=== PATIENT | male | born 1990 | race Caucasian/White ===

== ENCOUNTER 2020-08-28 11:27 | Outpatient (REF) | payer MEDICAID, SELFPAY | END 2020-08-28 11:28 | disposition home or self-care (01) | LOC: HO.LAB 11:27 | PROVIDERS: PCP Internal Medicine; Referring Provider Internal Medicine; Visit Provider Surgery | DX: L02.91 Cutaneous abscess, unspecified (principal) | CPT/HCPCS: 10060; 87071; 87205; 99213 ==

== ENCOUNTER → 2020-09-18 13:52 | Outpatient (BNVA) | payer MEDICAID, SELFPAY | PROVIDERS: PCP Internal Medicine; Visit Provider Surgery | DX: Z09 Encounter for follow-up examination after completed treatment for conditions other than malignant neoplasm (principal); Z87.2 Personal history of diseases of the skin and subcutaneous tissue | CPT/HCPCS: 99212 ==

== ENCOUNTER 2021-06-16 18:49 | Outpatient (REF) | payer MEDICAID, SELFPAY ==
--- NOTE | ~2021-06-16 | MR_ITS ---
EXAMINATION: MR BRAIN WITHOUT CONTRAST CLINICAL INFORMATION: Syncope COMPARISON: None. TECHNIQUE: MRI of the brain was obtained using routine sequences without contrast. FINDINGS: No areas of abnormally restricted diffusion within the brain parenchyma to suggest acute or subacute ischemia. There are a few scattered foci of subcortical white matter T2 prolongation statistically related to microangiopathic gliosis. No transcortical infarcts. No pathological magnetic susceptibility artifact is demonstrated. There is no intracranial mass, mass effect, or shift of midline structures. No abnormal extra axial fluid collection. Ventricular system normal in size proportionate to the subarachnoid spaces, without evidence of hydrocephalus. Mild generalized brain parenchymal volume loss. Posterior fossa structures are normal. The craniocervical junction is normal. Midline structures including the posterior pituitary bright spot are normal. The intracranial vascular flow voids including the major dural venous sinuses are preserved. Mastoid air cells are clear. The visualized paranasal sinuses are well-aerated. Globes and orbits unremarkable. MR/MR head/brain wo con IMPRESSION: Normal MRI of the brain.
== END 2021-06-16 18:50 | disposition home or self-care (01) ==
LOC: HO.MRI 18:49
PROVIDERS: Visit Provider Family Medicine
DX: R55 Syncope and collapse (principal)
CPT/HCPCS: 70551

== ENCOUNTER → 2021-06-25 12:35 | Outpatient (REF) | payer MEDICAID, SELFPAY ==
--- NOTE | 2021-06-25 12:38 | ECG_ITS ---
Hook-up date: 2021-06-25 12:51:00 Duration: 47:59:00 Test Indications: SYNCOPE AND COLLAPSE Medications: [id number] QRS complexes * Ventricular ectopics which represent % of total QRS comp. 12 Supraventricular ectopics which represent <1 % of total QRS comp. * Paced QRS complexs which represent % of total QRS comp. VENTRICULAR ECTOPY * Isolated * Bigeminal Cycles * Couplets * Runs * Beats in Runs * Beats LONGEST at * BPM at :: -- * Beats FASTEST at * BPM at :: -- SUPRAVENTRICULAR ECTOPY 12 Isolated 0 Couplets 0 Runs 0 Beats in Runs * Beats LONGEST at * BPM at :: -- * Beats FASTEST at * BPM at :: -- HEART RATES 45 MIN at 08:53:28 2021-06-26 73 AVG 128 MAX at 10:49:25 2021-06-26 LONGEST RR 1.4320 secs at 09:12:57 2021-06-26 S-T LEVELS Channel 1 - 128 mm at 12:51:00 2021-06-25 - 128 mm at 12:51:00 2021-06-25 Channel 2 - 128 mm at 12:51:00 2021-06-25 - 128 mm at 12:51:00 2021-06-25 Channel 3 - 128 mm at 03:21:01 -- - 128 mm at 03:21:01 Basic rhythm Normal sinus rhythm No long pause or profound bradycardia Rare Premature atrial complexes Patient did not report any symptoms in the diary Referred By: Tosin Jack Overread By: KAREEN CROSS MD
== END ==
LOC: HO.CARD 12:35
PROVIDERS: Visit Provider Family Medicine
DX: R55 Syncope and collapse (principal)
CPT/HCPCS: 93225; 93226

== ENCOUNTER 2023-08-10 11:00 | Outpatient (REF) | payer MEDICAID, SELFPAY ==
[2023-08-10 14:58] LABS: Alanine Aminotransferase 8 U/L (0-40); Albumin Level 4.4 g/dL (3.5-5.0); Alkaline Phosphatase 74 U/L (39-117); Anion Gap 13 (12-20); Aspartate Amino Transferase 18 U/L (5-37); Bilirubin Direct < 0.2 mg/dL (0.0-0.5); Bilirubin Total 0.2 mg/dL (0.0-1.0); Blood Urea Nitrogen 5 mg/dL (9-16); Calcium 9.7 mg/dL (8.4-10.2); Carbon Dioxide 28 mmol/L (22-29); Chloride 101 mmol/L (96-108); Cholesterol 250 mg/dL (<200); Estimated Glomerular Filt Rate > 60; Glucose Fasting 84 mg/dL (60-99); HDL Cholesterol 31 mg/dL (>40); Potassium 3.7 mmol/L (3.3-5.1); Sodium 138 mmol/L (135-145); Total Protein 7.2 g/dL (6.5-8.0); Triglycerides 405 mg/dL (<150)
[2023-08-10 15:14] LABS: Vitamin D 25-OH Total 18.8 ng/mL (>30)
[2023-08-10 15:29] LABS: Vitamin B12 910 pg/mL (200-900)
[2023-08-11 09:37] LABS: ~HepC Num1 0.04 S/CO (0.00-0.79); ~Hepatitis C Antibody Nonreactive (Nonreactive)
== END 2023-08-10 11:01 | disposition home or self-care (01) ==
LOC: HO.CHCLDS 11:00
PROVIDERS: Visit Provider Internal Medicine
DX: E78.2 Mixed hyperlipidemia (principal); E55.9 Vitamin D deficiency, unspecified; E53.8 Deficiency of other specified B group vitamins
CPT/HCPCS: 36415; 80053; 80061; 80076; 82248; 82306; 82607; 82746; 86803

== ENCOUNTER 2024-04-04 09:20 | Outpatient (REF) | payer MEDICAID, SELFPAY ==
[2024-04-04 14:42] LABS: MANUAL DIFF FLAG NO
[2024-04-04 15:03] LABS: Basophils Percent Auto 0.5 % (0-2); Eosinophils Absolute Auto 0.3 X10*3/uL (0.0-0.4); Eosinophils Percent Auto 3.9 % (0-4); Hematocrit 42.4 % (42.0-52.0); Hemoglobin 14.1 g/dl (14.0-18.0); Imm Gran Abs Auto 0.02 X10*3/uL (0.00-0.03); Imm Gran Pct Auto 0.3 % (0.0-0.4); Lymphocytes Absolute Auto 2.3 X10*3/uL (1.2-4.9); Lymphocytes Percent Auto 30.3 % (20-40); Mean Corpuscular HGB Conc 33.3 g/dl (31.0-36.0); Mean Corpuscular Hemoglobin 29.5 pg (27.0-33.0); Mean Corpuscular Volume 88.7 fL (80.0-98.0); Mean Platelet Volume 10.2 fL (9.4-12.4); Monocytes Absolute Auto 0.6 X10*3/uL (0.1-1.2); Monocytes Percent Auto 8.1 % (2-11); Neutrophils Absolute Auto 4.4 x10*3/uL (2.0-8.3); Neutrophils Percent Auto 56.9 % (45-73); Platelet Count 262 X10*3/uL (160-400); Red Blood Count 4.78 X10*6/uL (4.60-5.80); Red Cell Distribution Width 14.4 % (11.0-16.0); White Blood Count 7.7 X10*3/uL (4.8-10.8)
[2024-04-04 15:11] LABS: Estimated Average Glucose 105 mg/dL; Hemoglobin A1c % 5.3 % (<6.0)
[2024-04-04 15:23] LABS: Alanine Aminotransferase 16 U/L (0-40); Albumin Level 4.5 g/dL (3.5-5.0); Alkaline Phosphatase 85 U/L (39-117); Anion Gap 12 (12-20); Aspartate Amino Transferase 18 U/L (5-37); Bilirubin Total 0.7 mg/dL (0.0-1.0); Blood Urea Nitrogen 4 mg/dL (9-16); Calcium 9.2 mg/dL (8.4-10.2); Carbon Dioxide 28 mmol/L (22-29); Chloride 103 mmol/L (96-108); Cholesterol 78 mg/dL (<200); Estimated Glomerular Filt Rate > 60; Glucose Random 83 mg/dL (60-115); HDL Cholesterol 35 mg/dL (>40); Iron 103 mcg/dL (45-160); LDL Cholesterol Calculated 19 mg/dL (<100); Percent Iron Saturation 44 % (15-50); Potassium 3.2 mmol/L (3.3-5.1); Sodium 140 mmol/L (135-145); Total Iron Binding Capacity 232 mcg/dL (228-428); Total Protein 7.1 g/dL (6.5-8.0); Triglycerides 122 mg/dL (<150); Unsaturated Iron Binding 129 ug/dL
[2024-04-04 15:40] LABS: TSH reflex Free T4 1.18 uIU/mL (0.32-4.0); Vitamin D 25-OH Total 36.2 ng/mL (>30)
[2024-04-04 15:53] LABS: Folate 2.4 ng/mL (> or = 4.0); Vitamin B12 291 pg/mL (200-900)
== END 2024-04-04 09:21 | disposition home or self-care (01) ==
LOC: HO.CHCLDS 09:20
PROVIDERS: Visit Provider Internal Medicine
DX: R53.83 Other fatigue (principal)
CPT/HCPCS: 36415; 80053; 80061; 82306; 82607; 82746; 83036; 83540; 84443; 85025

== ENCOUNTER 2024-12-20 10:53 | Outpatient (REF) | payer MEDICAID, SELFPAY ==
--- OUTSIDE RECORDS SUMMARY | 2024-12-20 12:42 | XMS_ITS | Encounter Summary ---
Author Organization [employer] Address [address] [facility] 7 [place] [address] Care Team Providers Care Hose Wrapper Name Role Phone Lynn Colon MD Primary Care Provider [phone] Encounter Details Date Type Department Care Team ([facility] [address] Contact Info) Description 12/20/2024 10:00 AM EST Office Visit [facility] [address] [place], [place] [id number] Lynn Colon MD [address] [place] [address] Other fatigue (Primary Dx); History of weight loss; Vitamin D deficiency; Vitamin B12 deficiency; Mood disorder (CMS/HCC) Social History Tobacco Use Types Packs/Day Years Used Date Smoking Tobacco: Every Day Cigarettes Passive Smoke Exposure: Never Smokeless Tobacco: Never Alcohol Use Standard Drinks/Week Comments Not Currently 60 (1 standard drink = 0.6 oz pu re alcohol) Depression Answer Date Recorded Patient Health Questionnaire-9 Score 3 03/27/2024 Patient Health Questionnaire-9 Score 3 03/27/2024 Last PHQ-9: Questionnaire Data Not on file 0 03/27/2024 Housing Stability Answer Date Recorded What is your housing situation today? I have ida boothe 03/27/[address] you li ve. Do you have problems with any of the following? None of the above 03/27/2024 Food Insecurity Answer Date Recorded Within the past 12 months, y ou worried that your food would run out before you got money to buy more: Never True 03/27/2024 Within the past 12 months,th e food you bought just didn't last and you didn't have enough money to get more: Never True Transportation Answer Date Recorded In the past 12 months, has l ack of transportation kept you from medical appts, meetings, work or from getting things needed for daily living? No 03/27/2024 Utilities Answer Date Recorded In the past 12 months, has t he electric, gas, oil or water company threatened to shut off services in your home? No 03/27/2024 Depression Answer Date Recorded Patient Health Questionnaire-2 Score 2 03/27/2024 Sex and Gender Information Value Date Recorded Sex Assigned at Male 09/07/2022 10:29 AM EDT Legal Sex Male 10:29 AM EDT Gender Identity Male 09/07/2022 10:29 AM EDT Sexual Orientation Straight 09/07/2022 10 :29 AM EDT documented as of this encounter Last Filed Vital Signs Vital Sign Reading Time Taken Comments Blood Pressure 100/60 12/20/2024 10:23 AM EST Pulse 82 12/20/2024 10:23 AM EST Temperature 36.1 ??C (97 ??F) 12/20/2024 10:23 AM EST Respiratory Rate 20 12/20/2024 10:23 AM EST Oxygen Saturation - - Inhaled Oxygen Concentration - - Weight 55.8 kg (123 lb) 12/20/2024 10:23 AM EST Height 175.3 cm (5' 9 ) 12/20/2024 10:23 AM EST Body Mass Index 18.16 12/20/2024 10:23 AM EST documented in this encounter Progress Notes * Lynn Colon MD - 12/20/2024 10:00 AM EST Subjective Patient ID: Edmar Huntley is a 34 y.o. male who presents for fatigue and poor appetite. Edmar is a 34 y/o male patient of Dr. Patricio with bipolar disorder,ADHD and problems of learning disability since childhood here with mom because his appetite is very poor ( always has been ) but seems to be worse lately.Has an itchy rash affecting back,torso and upper extremities. He smokes marijuana from dispensary.3 cigarettes per day and he isnt drinking alcohol anymore since over 5 years ago. He had labs done in March of last year which were pretty benign and were reviewed by myself. His weight is stable from last visit. Per mom he can go days without eating much unless she is on top of him. Patient is getting a lot of dental work done at [facility] dental clinic but denies having dental pain orchewing difficulties. He does get epigastric pain on occasions with no radiation but denies blood in stool, hematuria, polyuria, back pain, diarrhea, constipation, etc. He has a psychiatrist as well as a therapist that he has been seeing for years. He is not on any new medications. Review of Systems Constitutional: Negative for activity change, chills, fever and unexpected weight change. Respiratory: Negative for cough, shortness of breath and wheezing. Cardiovascular: Negative for chest pain, palpitations and leg swelling. Gastrointestinal: Negative for abdominal pain and blood in stool. Endocrine: Negative for polydipsia and polyuria. Genitourinary: Negative for decreased urine volume, difficulty urinating, dysuria and hematuria. Musculoskeletal: Negative for arthralgias and gait problem. Skin: Negative for color change and rash. Neurological: Negative for dizziness and headaches. Hematological: Negative for adenopathy. Psychiatric/Behavioral: Negative for dysphoric mood, hallucinations, sleep disturbance and suicidalideas. The patient is not nervous/anxious. Objective BP 100/60 (BP Location: Left arm, Patient Position: Sitting, BP Cuff Size: Adult) Pulse82 Temp 97 ??F (36.1 ??C) (Oral) Resp 20 Ht 5' 9 (1.753 m) Wt 123 lb (55.8 kg) BMI 18.16kg/m?? Physical Exam Constitutional: General: He is not in acute distress. Appearance: He is underweight. HENT: Head: Normocephalic. Nose: Nose normal. Mouth/Throat: Mouth: Mucous membranes are dry. Eyes: Extraocular Movements: Extraocular movements intact. Pupils: Pupils are equal, round, and reactive to light. Cardiovascular: Rate and Rhythm: Normal rate and regular rhythm. Heart sounds: Normal heart sounds. No murmur heard. Pulmonary: Effort: Pulmonary effort is normal. Breath sounds: Normal breath sounds. No wheezing. Abdominal: General: Abdomen is flat. There is no distension. Palpations: Abdomen is soft. There is no hepatomegaly, splenomegaly, mass or pulsatile mass. Tenderness: There is abdominal tenderness in the epigastric area. There is no guarding. Musculoskeletal: Cervical back: Normal range of motion. Right lower leg: No edema. Left lower leg: No edema. Lymphadenopathy: Cervical: No cervical adenopathy. Neurological: Mental Status: He is alert. Psychiatric: Behavior: Behavior is cooperative. Assessment/Plan Diagnoses and all orders for this visit: Other fatigue - POCT Glucose - POCT Hemoglobin - Lipid Panel, Standard; Future - Basic Metabolic Panel, Fasting; Future - BROOKE Screen,IFA, with Reflex to Titer and Pattern; Future - CBC auto differential; Future - Chlamydia/N. Gonorrhoeae RNA, TMA, Urogenitial - Hemoglobin A1c; Future - Hepatic Function Panel; Future - Vitamin D, 25-Hydroxy, Total, Immunoassay; Future - Vitamin B12/Folate, Serum Panel; Future - TSH W/Reflex to FT4; Future - Urinalysis with reflex microscopic; Future - Syphilis Screen; Future - HIV-1/2 Antigen and Antibodies, Fourth Generation, with Reflexes; Future - Hepatitis C Antibody with Reflex to HCV, RNA, Quantitative, Real-Time PCR; Future History of weight loss Comments: Weight has been stable since last visit but he is underweight. This could be from side effects of his psychiatric medications versus other etiologies. BMI is 18. Check fasting labs today follow-up with me given for results. Orders: - Lipid Panel, Standard; Future - Basic Metabolic Panel, Fasting; Future - BROOKE Screen,IFA, with Reflex to Titer and Pattern; Future - CBC auto differential; Future - Chlamydia/N. Gonorrhoeae RNA, TMA, Urogenitial - Hemoglobin A1c; Future - Hepatic Function Panel; Future - Vitamin D, 25-Hydroxy, Total, Immunoassay; Future - Vitamin B12/Folate, Serum Panel; Future - TSH W/Reflex to FT4; Future - Urinalysis with reflex microscopic; Future - Syphilis Screen; Future - HIV-1/2 Antigen and Antibodies, Fourth Generation, with Reflexes; Future - Hepatitis C Antibody with Reflex to HCV, RNA, Quantitative, Real-Time PCR; Future - Lipase; Future Vitamin D deficiency Comments: Patient is barely eating at all. Check levels and treat accordingly. Vitamin B12 deficiency Comments: Last blood work from March 2024 revealed a level below 300. Recheck levels today and treat accordingly. Patient is not drinking alcohol since the past 5 years. Mood disorder (CMS/HCC) Comments: Unsure of his psychiatric diagnosis. Seems to be treated for bipolar disorder. Does have therapist and psychiatrist. Follow-up as planned. documented in this encounter Plan of Treatment Upcoming Encounters Date Type Department Care Team (Late st Contact Info) Description 01/05/2025 1:00 PM EST Office Visit [facility] [address] [place] [address] Valerie Go 01/18/2025 10:15 AM EDT Office Visit [facility] [address] [place] [address] Lynn Colon MD [address] [place] [address] Scheduled Orders Name Type Priority Associated Diagnoses Orde r Schedule Lipid Panel, Standard Lab Routine Other fatigue History of weight loss Expected: 12/20/2024 (Approximate), Expires: 12/20/2025 Basic Metabolic Panel, Fasting Lab Routine Other fatigue History of weight loss Expected: 12/20/2024 (Approximate), Expires: 12/20/2025 BROOKE Screen,IFA, with Reflex to Titer and Pattern Lab Routine Other fatigue History of weight loss Expected: 12/20/2024 (Approximate), Expires: 12/20/2025 CBC auto differential Lab Routine Other fatigue History of weight loss Expected: 12/20/2024 (Approximate), Expires: 12/20/2025 Chlamydia/N. Gonorrhoeae RNA, TMA, Urogenitial Microbiology Routine Other fatigue History of weight loss Ordered: 12/20/2024 Hemoglobin A1c Lab Routine Other fatigue History of weight loss Expected: 12/20/2024 (Approximate), Expires: 12/20/2025 Hepatic Function Panel Lab Routine Other fatigue History of weight loss Expected: 12/20/2024 (Approximate), Expires: 12/20/2025 Vitamin D, 25-Hydroxy, Total, Immunoassay Lab Routine Other fatigue History of weight loss Expected: 12/20/2024 (Approximate), Expires: 12/20/2025 Vitamin B12/Folate, Serum Panel Lab Routine Other fatigue History of weight loss Expected: 12/20/2024, Expires: 12/20/2025 TSH W/Reflex to FT4 Lab Routine Other fatigue History of weight loss Expected: 12/20/2024 (Approximate), Expires: 12/20/2025 Urinalysis with reflex microscopic Lab Routine Other fatigue History of weight loss Expected: 12/20/2024, Expires: 12/20/2025 Syphilis Screen Lab Routine Other fatigue History of weight loss Expected: 12/20/2024, Expires: 12/20/2025 HIV-1/2 Antigen and Antibodies, Fourth Generation, with Reflexes Lab Routine Other fatigue History of weight loss Expected: 12/20/2024 (Approximate), Expires: 12/20/2025 Hepatitis C Antibody with Reflex to HCV, RNA, Quantitative, Real-Time PCR Lab Routine Other fatigue History of weight loss Expected: 12/20/2024, Expires: 12/20/2025 Lipase Lab Routine History of weight loss Expected: 12/20/2024, Expires: 12/20/2025 documented as of this encounter Procedures Procedure Name Priority Date/Time Associated Diagnosis Comments POCT HEMOGLOBIN Routine 12/20/2024 11:06 AM EST Other fatigue POCT GLUCOSE Routine 12/20/2024 11:04 AM EST Other fatigue documented in this encounter Results * POCT Hemoglobin (12/20/2024 11:06 AM EST) Hemoglobin 14.8 13.0 - 17.0 QC Media Lot # [id number] Lot# Expiration Date 132,026 Blood 12/20/2024 11:0 6 AM EST us Lynn Colon MD POINT OF CARE TEST ENTER/EDIT ORDERABLES Final Result * POCT Glucose (12/20/2024 11:04 AM EST) Glucose Blood, POC 118 60 - 200 mg/dL Comment:fasting QC Media Lot # [id number] Lot# Expiration Date 4,825 Blood Capillary blood specimen / Unknown 12/20/2024 11:04 AM EST us Lynn Colon MD POINT OF CARE TEST ENTER/EDIT ORDERABLES Final Result documented in this encounter Visit Diagnoses Diagnosis Other fatigue- Primary History of weight loss Vitamin D deficiency Vitamin B12 deficiency Other B-complex deficiencies Mood disorder (CMS/HCC) Unspecified episodic mood disorder documented in this encounter Additional Health Concerns Assessment Noted Time PHQ-9 Depression Total Score: 3 03/27/20 24 1:07 PM EDT documented as of this encounter Care Teams Hose Wrapper Relationship Specialty Start Date End Date Lynn Colon MD [address] [place] [id number] PCP - General Internal Medicine 12/20/24 Lucie Blankenship Renal Social WorkerOrnamental Plasterer Helper 02/02/24 documented as of this encounter
--- OUTSIDE RECORDS SUMMARY | 2024-12-20 12:42 | XMS_ITS | Encounter Summary ---
Author Organization [employer] Address [address] [place] [address] Care Team Providers Care Holistic Health Practitioner Name Role Phone Reed Cortes MD Primary Care Prov ider Lynn Colon MD Primary Care Provider [phone] Encounter Details Date Type Department Care Team (Late st Contact Info) Description 11/02/2023 Abstract [facility] [address] [place] [address] Sahil Conrad, DDS [address] [place] [address] Social History Tobacco Use Types Packs/Day Years Used Date Smoking Tobacco: Every Day Cigarettes Passive Smoke Exposure: Never Smokeless Tobacco: Never Alcohol Use Standard Drinks/Week Comments Not Currently 60 (1 standard drink = 0.6 oz pu re alcohol) Depression Answer Date Recorded Patient Health Questionnaire-9 Score 9 01/27/2023 Housing Stability Answer Date Recorded What is your housing situation today? I have ida boothe 08/23/[address] you li ve. Do you have problems with any of the following? None of the above 08/23/2023 Food Insecurity Answer Date Recorded Within the past 12 months, y ou worried that your food would run out before you got money to buy more: Never True 08/23/2023 Within the past 12 months,th e food you bought just didn't last and you didn't have enough money to get more: Never True Transportation Answer Date Recorded In the past 12 months, has l ack of transportation kept you from medical appts, meetings, work or from getting things needed for daily living? No 08/23/2023 Utilities Answer Date Recorded In the past 12 months, has t he electric, gas, oil or water company threatened to shut off services in your home? No 08/23/2023 Depression Answer Date Recorded Patient Health Questionnaire-2 Score 2 01/27/2023 Sex and Gender Information Value Date Recorded Sex Assigned at Male 09/07/2022 10:29 AM EDT Legal Sex Male 10:29 AM EDT Gender Identity Male 09/07/2022 10:29 AM EDT Sexual Orientation Straight 09/07/2022 10 :29 AM EDT documented as of this encounter Plan of Treatment Upcoming Encounters Date Type Department Care Team (Late st Contact Info) Description 01/05/2025 1:00 PM EST Office Visit [facility] [address] [place] [address] Valerie Go 01/18/2025 10:15 AM EDT Office Visit [facility] [address] [place] [address] Lynn Colon MD [address] [place] [address] documented as of this encounter Visit Diagnoses Not on filedocumented in this encounter Additional Health Concerns Assessment Noted Time PHQ-9 Depression Total Score: 9 01/28/20 23 11:27 AM EDT documented as of this encounter Care Teams Holistic Health Practitioner Relationship Specialty Start Date End Date Reed Cortes MD [address] [place] [address] PCP - General Internal Medicine 03/12/20 12/19/24 Lynn Colon MD [address] [place] [address] PCP - General Internal Medicine 12/20/24 Lucie Blankenship Cruise Staff MemberColorist Dyer 02/02/24 documented as of this encounter
--- OUTSIDE RECORDS SUMMARY | 2024-12-20 12:42 | XMS_ITS | Encounter Summary ---
Author Organization [employer] Address [address] [facility] [address]t [place] [address] Care Team Providers Care Intranet Specialist Name Role Phone Reed Cortes MD Primary Care Prov ider Lynn Colon MD Primary Care Provider [phone] Reason for Visit * Reason Comments Med Refill Encounter Details Date Type Department Care Team ([facility] st Contact Info) Description 03/29/2023 Refill [facility] [address] [place], [place] [phone] Tosin Jack MD [address] [place] [address] Vitamin deficiency Social History Tobacco Use Types Packs/Day Years Used Date Smoking Tobacco: Every Day Cigarettes Passive Smoke Exposure: Never Smokeless Tobacco: Never Alcohol Use Standard Drinks/Week Comments Not Currently 60 (1 standard drink = 0.6 oz pu re alcohol) Depression Answer Date Recorded Patient Health Questionnaire-9 Score 9 01/27/2023 Depression Answer Date Recorded Patient Health Questionnaire-2 Score 2 01/27/2023 Sex and Gender Information Value Date Recorded Sex Assigned at Male 09/07/2022 10:29 AM EDT Legal Sex Male 10:29 AM EDT Gender Identity Male 09/07/2022 10:29 AM EDT Sexual Orientation Straight 09/07/2022 10 :29 AM EDT documented as of this encounter Miscellaneous Notes * Telephone Encounter - Tosin Jack MD - 03/29/2023 9:14 AM EDT This is a not a ad terminal makeup operator medication this is for short term, at this moment will refused this request documented in this encounter Plan of Treatment Upcoming Encounters Date Type Department Care Team (Late st Contact Info) Description 01/05/2025 1:00 PM EST Office Visit [facility] [address] [place] [address] Valerie Go 01/18/2025 10:15 AM EDT Office Visit [facility] [address] [place] [address] Lynn Colon MD [address] [place] [address] documented as of this encounter Visit Diagnoses Diagnosis Vitamin deficiency Unspecified vitamin deficiency documented in this encounter Additional Health Concerns Assessment Noted Time PHQ-9 Depression Total Score: 9 01/28/20 23 11:27 AM EDT documented as of this encounter Care Teams Intranet Specialist Relationship Specialty Start Date End Date Reed Cortes MD [address] [place] [address] PCP - General Internal Medicine 03/12/20 12/19/24 Lynn Colon MD [address] [place] [address] PCP - General Internal Medicine 12/20/24 Lucie Blankenship Caster OperatorCore Drilling Supervisor 02/02/24 documented as of this encounter
--- OUTSIDE RECORDS SUMMARY | 2024-12-20 12:42 | XMS_ITS | Encounter Summary ---
Author Organization [employer] [facility] Address [address] [place] [address] 7 [place] [address] Care Team Providers Care Cooler Man Name Role Phone Reed Cortes MD Primary Care Prov ider Lynn Colon MD Primary Care Provider [phone] Encounter Details Date Type Department Care Team (Latest Contact Info) Description 06/12/2021 Abstract [facility] Dental, Provider, DDS Social History Tobacco Use Types Packs/Day Years Used Date Smoking Tobacco: Never Assessed Sex and Gender Information Value Date Recorded Sex Assigned at Male 09/07/2022 10:29 AM EDT Legal Sex Male 10:29 AM EDT Gender Identity Male 09/07/2022 10:29 AM EDT Sexual Orientation Straight 09/07/2022 10 :29 AM EDT documented as of this encounter Plan of Treatment Upcoming Encounters Date Type Department Care Team (Late st Contact Info) Description 01/05/2025 1:00 PM EST Office Visit [facility] [address] [place] [address] Valerie Go 01/18/2025 10:15 AM EDT Office Visit [facility] [address] [place] [address] Lynn Colon MD [address] [place] [address] documented as of this encounter Visit Diagnoses Not on filedocumented in this encounter Care Teams Cooler Man Relationship Specialty Start Date End Date Reed Cortes MD [address] [place] [address] PCP - General Internal Medicine 03/12/20 12/19/24 Lynn Colon MD [address] [place] [address] [place] [address] PCP - General Internal Medicine 12/20/24 Lucie Blankenship Sheep ClipperCarton Marker Machine 02/02/24 documented as of this encounter
--- OUTSIDE RECORDS SUMMARY | 2024-12-20 12:42 | XMS_ITS | Encounter Summary ---
Author Organization [employer] Address [address] [place] [address] Care Team Providers Care Patternmaker Hand Name Role Phone Lynn Colon MD Primary Care Provider [phone] Encounter Details Date Type Department Care Team (Latest Contact Info) Description 12/20/2024 Travel Social History Tobacco Use Types Packs/Day Years [...] 1:00 PM EST Office Visit [facility] [address] [place] [address] Valerie Go 01/18/2025 10:15 AM EDT Office Visit [facility] [address] [place] [address] Lynn Colon MD [address] [place] [address] documented as of this encounter Visit Diagnoses Not on filedocumented in this encounter Additional Health Concerns Assessment Noted Time PHQ-9 Depression Total Score: 3 03/27/20 24 1:07 PM EDT documented as of this encounter Care Teams Patternmaker Hand Relationship Specialty Start Date End Date Lynn Colon MD [address] [place] [address] PCP - General Internal Medicine 12/20/24 Lucie Blankenship Wallpaper HangerSpecial Needs Tutor 02/02/24 documented as of this encounter
--- OUTSIDE RECORDS SUMMARY | 2024-12-20 12:42 | XMS_ITS | Encounter Summary ---
Author Organization [employer] Address [address] [facility] 7t [place] [address] Care Team Providers Care Alteration Inspector Name Role Phone Reed Cortes MD Primary Care Prov ider Lynn Colon MD Primary Care Provider [phone] Reason for Visit * Reason Onset Date Comments call back 12/30/2022 Encounter Details Date Type Department Care Team ([facility] st Contact Info) Description 12/30/[address] [facility] MEDICINE [address] [place] [address] Reed Cortes MD [address] [place] [address] call back Social History Tobacco Use Types Packs/Day Years Used Date Smoking Tobacco: Never Passive Smoke Exposure: Past Smokeless Tobacco: Never Alcohol Use Standard Drinks/Week Comments Never 0 (1 standard drink = 0.6 oz pur e alcohol) Sex and Gender Information Value Date Recorded Sex Assigned at Male 09/07/2022 10:29 AM EDT Legal Sex Male 10:29 AM EDT Gender Identity Male 09/07/2022 10:29 AM EDT Sexual Orientation Straight 09/07/2022 10 :29 AM EDT COVID-19 Exposure Response Date Recorded In the last 10 days, have yo u been in contact with someone who was confirmed or suspected to have Coronavirus/COVID-19? No / Unsure 12/18/2022 10:15 AM EST documented as of this encounter Miscellaneous Notes * Telephone Encounter - Jcarlos Gaspar - 12/30/2022 10:53 AM EST Tc from mom returning call. Mom requesting a call back documented in this encounter Plan of Treatment Upcoming Encounters Date Type Department Care Team ([facility] st Contact Info) Description 01/05/2025 1:00 PM EST Office Visit [facility] ADULT DENTAL [address] [place] [address] Valerie Go 01/18/2025 10:15 AM EDT Office Visit [facility] MED & PEDS [address] [place] [address] Lynn Colon MD [address] [place] [address] documented as of this encounter Visit Diagnoses Not on filedocumented in this encounter Care Teams Alteration Inspector Relationship Specialty Start Date End Date Reed Cortes MD [address] [place] [address] PCP - General Internal Medicine 03/12/20 12/19/24 Lynn Colon MD [address] [place] [address] PCP - General Internal Medicine 12/20/24 Lucie Blankenship Coater Operator Insulation BoardPortfolio Mgr 02/02/24 documented as of this encounter
--- OUTSIDE RECORDS SUMMARY | 2024-12-20 12:42 | XMS_ITS | Clinical Summary ---
Author Organization [employer] Address [address] [facility] 7t [place] [address] Care Team Providers Care Resident Care Aid Name Role Phone Lynn Colon MD Primary Care Provider [phone] Allergies Active Allergy Reactions Criticality Noted Date Comments Sertraline High 01/23/2019 Other reaction(s): Drowsy, Fatigue Medications traZODone (Desyrel) 100 MG tablet Take 200 mg by mouth at bedtime. 3 Active Invega 9 MG 24 hr tablet Take 9 mg by mouth at bedtime. 2 Active nicotine (Nicoderm, Step 2) 14 MG/24HR patch Place 1 patch on the skin at bed time. 2 Active buPROPion (Wellbutrin) 100 MG tablet Take 100 mg by mouth in the morning. 3 Active busPIRone (Buspar) 10 MG tablet Take 1 tablet by mouth every 12 (twelve) hours. Active citalopram (CeleXA) 20 MG tablet Take 40 mg by mouth Once per day. 3 Active clonazePAM (KlonoPIN) 1 MG tablet Take 1 mg by mouth if needed each day. 3 Active hydrOXYzine HCl (Atarax) 25 MG tablet Take 25 mg by mouth if needed in the morning, at noon, and at bedtime. 3 Active melatonin 3 MG tablet TAKE 1-2 TABLETS BY MOUTH AT BEDTIME NEEDED 3 Active multivitamin (Theragran) tablet Take 1 tablet by mouth in the morning. 2 Active naltrexone (Depade) 50 MG tablet Take 1 tablet by mouth at bed time. Active Cyanocobalamin (Vitamin B-12 ER) 2000 MCG tablet controlled-rele aseIndications: Vitamin deficiency Take 1 tablet by mouth in the morning. 90 tablet 1 3 Active folic acid (Folvite) 1 MG tabletIndicatio ns:Vitamin deficiency Take 1 tablet (1 mg) by mouth in the morning. 90 tablet 1 3 Active atorvastatin (Lipitor) 20 MG tablet TAKE 1 TABLET(20 MG) BY MOUTH IN THE MORNING 90 tablet 1 4 Active citalopram (CeleXA) 40 MG tablet Take 1 tablet by mouth Once per day. 4 Active cholecalciferol (Vitamin D-3) 25 MCG (1000 UT) capsule Take 1 capsule (25 mcg) by mouth in the morning. 90 capsule 3 4 11/24/19 25 Additional Information Patient not taking.Reported on 07/18/2024 Active Problems Problem Noted Date Diagnosed Date Chronic left-sided low back pain without sciatic a 2023 Assessment & Plan (2023 2:29 PM EST): Told to rest, apply ice, may take tylenol/ibuprofen, lumbar xray ordered Vitamin D deficiency 04/28/2023 Assessment & Plan (03/27/2024 2:31 PM EDT): On oral replacement, will order labs for evaluation Assessment & Plan (2023 2:21 PM EST): Will start vitamin d replacement Assessment & Plan (04/28/2023 11:10 AM EDT): Will order vitamin d levels for guidance of therapy Vitamin B12 deficiency 04/28/2023 Assessment & Plan (04/28/2023 11:15 AM EDT): On cyanocobalamin, will order labs for guidance of therapy Annual physical exam 01/27/2023 Assessment & Plan (01/27/2023 6:12 PM EDT): Unremarkable physical examination, reinforced importance of diet and exercise Mixed hyperlipidemia 01/27/2023 Assessment & Plan (03/27/2024 2:31 PM EDT): Refers taking atorvastatin daily, will order new labs for guidance Assessment & Plan (2023 2:29 PM EST): Patient and family member confirm he is taking atorvastatin daily, reinforced lifestyle changes, avoid fried/fast food, increase fish in diet, will order new lab for guidance Assessment & Plan (07/28/2023 8:30 PM EDT): Patient refers taking medication but on review it was picked up last time on 01/2023, new labs ordered not performed, he refers will get them done this week, will call with results Assessment & Plan (04/28/2023 11:14 AM EDT): On atorvastatin, will order new labs for guidance of therapy, reinforced importance of diet and exercise as tolerated Assessment & Plan (01/27/2023 6:13 PM EDT): Cholesterol/LDL >190, will start on atorvastatin 20mg, risk vs benefits discussed Other fatigue 12/18/2022 Assessment & Plan (03/27/2024 2:30 PM EDT): Patient complains of fatigue and dizziness, will order blood test to evaluate other causes, could also be related to psych medications Assessment & Plan (12/22/2022 3:34 PM EST): Unclear etiology, will send labs to assess if there is an organic cause to his symptoms, of note he is on various medications that can precipitate his symptoms. Likely multifactorial. Alcohol abuse 02/27/2019 Mood disorder 02/27/2019 Assessment & Plan (01/27/2023 6:12 PM EDT): Followed by psych, no active suicidal/homicidal ideas Encounters Date Type Department Care Team Description 12/20/2024 10:00 AM EST Office Visit [facility] MED & PEDS [address] [place] [address] Lynn Colon MD Other fatigue (Primary Dx); History of weight loss; Vitamin D deficiency; Vitamin B12 deficiency; Mood disorder (CMS/HCC) 12/20/2024 Telephone [facility] MED & PEDS [address] [place] [address] Lynn Colon MD Change PCP 12/20/2024 Travel 12/19/2024 Telephone [facility] MED & PEDS [address] [place] [address] Reed Cortes MD 12/12/2024 Telephone [facility] MED & PEDS [address] [place] [address] Reed Cortes MD Nurse Triage from Last 3 Months Immunizations Name Administration Dates Next Due Hep A, Adult 09/25/2019,03/24/2019 Influenza Injectable Quadriv alant Preservative Free IIV4 MDCK 09/02/2020 Influenza injectable quadriv alent IIV4 with preservative 09/25/2019,09/06/2018 Influenza injectable quadrivalent preservative f ree 12/08/2017,01/17/2016 Influenza, IIV3, injectable 08/22/2014, 0 Moderna Covid-19 Vaccine 6+ Bivalent 10/03/2022 Tdap 01/17/2016 Social History Tobacco Use Types Packs/Day Years Used Date Smoking Tobacco: Every Day Cigarettes Passive Smoke Exposure: Never Smokeless Tobacco: Never Tobacco Cessation:Ready to Q uit: Not Asked; Counseling Given: Not Answered Alcohol Use Standard Drinks/Week Comments Not Currently [...] Orientation Straight 09/07/2022 10 :29 AM EDT Last Filed Vital Signs Vital Sign Reading Time Taken Comments Blood Pressure 100/60 12/20/2024 10:23 AM EST Pulse 82 12/20/2024 10:23 AM EST Temperature 36.1 ??C (97 ??F) 12/20/2024 10:23 AM EST Respiratory Rate 20 12/20/2024 10:23 AM EST Oxygen Saturation 99% 01/04/2023 3:38 PM EST Inhaled Oxygen Concentration - - Weight 55.8 kg (123 lb) 12/20/2024 10:23 AM EST Height 175.3 cm (5' 9 ) 12/20/2024 10:23 AM EST Body Mass Index 18.16 12/20/2024 10:23 AM EST Plan of Treatment Upcoming Encounters Date Type Department Care Team (Late st Contact Info) Description 01/05/2025 1:00 PM EST Office Visit [facility] ADULT DENTAL [address] [place] [address] Valerie Go 01/18/2025 10:15 AM EDT Office Visit [facility] MED & PEDS [address] [place] [address] Lynn Colon MD [address] [place] [address] Health Maintenance Due Date Last Done Comments Alcohol/Substance Use Screening 2001 Family Planning (PISQ) 2004 Hepatitis B Vaccines (1 of 3 - 19+ 3-dose series) 2008 Pneumococcal Vaccine: Pediatrics (0 to 5 Years) and At-Risk Patients (6 to 49) Years) (1 of 2 - PCV) 2008 COVID-19 Vaccine ( season) 2024 08/10/2023, 10/03/2022, 10/22/2021, Additional history exists Influenza Vaccine (#1) 2024 , 09/25/2019, 09/06/2018, Additional history exists Dental Prophylaxis 01/01/2025 06/30/2024, 1 12/06/2022, 01/11/2023 Dental Oral Exam 01/18/2025 07/20/2024, 09/01/2023 Depression Screening 03/27/2025 03/27/2024, 03/27/20 SDOH Screening 03/27/2025 03/27/2024 Dental X-Ray: Bitewings 07/01/2025 06/30/2024, 01/11 Tobacco Screening 12/20/2025 12/20/2024 DTaP/Tdap/Td Vaccines (2 - Td or Tdap) 01/16/2026 01/17/2016 Dental X-Ray: Full Mouth 07/01/2027 06/30/2024 Lipid Panel 04/04/2029 04/04/2024, 1001/2023, 12/18/2022 Zoster Vaccines (1 of 2) 2039 RSV Patients and Patients Aged 60 years or older (1 - 1-dose 75+ series) 2064 Hepatitis A Vaccines Completed 09/25/2019, 03/24/20 19 HIV Screening Completed 07/24/2021, 10/25/2019 Hepatitis C Screening Completed 08/10/2023, 019 HIB Vaccines Aged Out No longer eligi ble based on patient's age to complete this topic HPV Vaccines Aged Out No longer eligi ble based on patient's age to complete this topic IPV Vaccines Aged Out No longer eligi ble based on patient's age to complete this topic Meningococcal Vaccine Aged Out No raegan syed eligible based on patient's age to complete this topic RSV under 20 months Aged Out No longe r eligible based on patient's age to complete this topic Rotavirus Vaccines Aged Out No longer eligible based on patient's age to complete this topic Procedures Procedure Name Priority Date/Time Associated Diagnosis Comments POCT HEMOGLOBIN Routine 12/20/2024 11:06 AM EST Other fatigue POCT GLUCOSE Routine 12/20/2024 11:04 AM EST Other fatigue PERIODIC ORAL EVALUATION - ESTABLISHED PATIENT Routine 07/20/2024 3:00 PM EDT PROPHYLAXIS - ADULT Routine 06/30/2024 1 :00 PM EDT DIAGNOSTIC - DIAGNOSTIC IMAGING - INTRAORAL - COMPREHENSIVE SERIES OF RADIOGRAPHIC IMAGES Routine 06/30/2024 1:00 PM EDT LIPID PANEL, STANDARD Routine 04/04/2024 9:24 AM EDT Other fatigue HEPATITIS C AB W/REFL TO HCV RNA, QN, PCR Routine 08/10/2023 11:05 AM EDT Mixed hyperlipidemia HIV 1/2 ANTIGEN/ANTIBODY, FOURTH GENERATION W/RFL Routine 07/24/2021 9:09 AM EDT from Last 3 Months or Most Recently Relevant to Health Maintenance Results * POCT Hemoglobin (12/20/2024 11:06 AM EST) Hemoglobin 14.8 13.0 - 17.0 QC Media Lot # [id number] Lot# Expiration Date 132,026 Blood 12/20/2024 11:0 6 AM EST Lynn Colon MD POINT OF CARE TEST ENTER/EDIT ORDERABLES Final Result * POCT Glucose (12/20/2024 11:04 AM EST) Glucose Blood, POC 118 60 - 200 mg/dL Comment:fasting QC Media Lot # [id number] Lot# Expiration Date 4,825 Blood Capillary blood specimen / Unknown 12/20/2024 11:04 AM EST us Lynn Colon MD POINT OF CARE TEST ENTER/EDIT ORDERABLES Final Result * (ABNORMAL) Lipid Panel, Standard (04/04/2024 9:24 AM EDT) Triglycerides 122 <150 mg/dL [facility] Comment:Desirable Triglyceri de: less than 150 mg/dLBorderline High Triglyceride 150-199 mg/dLHigh Triglyceride: 200-499 mg/dLVery High Triglyceride: greater than or equal to 5OO mg/dL Cholesterol 78 <200 mg/dL [facility] Comment:Desirable Cholestero l: less than 200 mg/dLBorderline High Cholesterol: 200-239 mg/dLHigh Cholesterol: greater than 239 mg/dL LDL Cholesterol Calculated 19 <100 mg/dL [facility] Comment:Desirable LDL: less than 100 mg/dLNear Optimal/Above Optimal LDL: 110- 129 mg/dLBorderline High LDL: 130-159 mg/dLHigh LDL: 160-189 mg/dLVery High LDL: greater than or equal to 190 mg/dL HDL Cholesterol 35(L) >40 mg/dL [facility] Comment:Desirable HDL: great er than 40 mg/dL Note: This HDL assay may give artificially low results in patients with liver disease. Blood Venous blood specimen / Unknown 04/04/2024 9:24 AM EDT 04/04/2024 2:38 PM EDT us Reed Dumas MD LAB BLOOD ORDERABL ES Final Result [facility] [address] [place] [address] [phone] * Hepatitis C Antibody with Reflex to HCV, RNA, Quantitative, Real-Time PCR (08/10/2023 11:05 AM EDT) Hepatitis C Antibody Nonreactive Nonreactive [facility] Comment:Antibodies to HCV no t detected; does not exclude early acuteHCV infection. Blood Venous blood specimen / Unknown 08/10/2023 11:05 AM EDT 08/10/2023 2:31 PM EDT us Reed Dumas MD LAB BLOOD ORDERABL ES Final Result [facility] [address] [place] [address] [phone] * HIV 1/2 ANTIGEN/ANTIBODY,FOURTH GENERATION W/RFL (07/24/2021 9:09 AM EDT) Pathologist [facility] HIV-1/2 ANTIGEN AND ANTIBODIES, 4TH GENERATION W/ REFLEX NON-REACT VICENTE NON-REACT VICENTE [facility] Comment: HIV-1 antigen and HIV-1/HIV-2 antibodies were not detected. There is no laboratory evidence of HIV infection. ?? PLEASE NOTE: This information has been disclosed to you from records whose confidentiality may be protected by state law. ??If your state requires such protection, then the state law prohibits you from making any further disclosure of the information without the specific written consent of the person to whom it pertains, or as otherwise permitted by law. A general authorization for the release of medical or other information is NOT sufficient for this purpose. ? For additional information please refer to http://education.[employer]/faq/TTC120 (This link is being provided for informational/ educational purposes only.) ? The performance of this assay has not been clinically validated in patients less than 2 years old. ?? 07/24/2021 9:09 AM EDT us Tosin Jack MD LAB BLOOD ORDERABLES Final Re sult [facility] [address] from Last 3 Months or Most Recently Relevant to Health Maintenance Insurance [place] [facility] MEDICAID STAND ADULT Care Teams Resident Care Aid Relationship Specialty Start Date End Date Lynn Colon MD [address] [place] [phone] PCP - General Internal Medicine 12/20/24 Lucie Blankenship City DispatcherTin Container Straightener 02/02/24
--- OUTSIDE RECORDS SUMMARY | 2024-12-20 12:42 | XMS_ITS | Clinical Summary ---
Author Organization [facility] Address [address] [place] [address] Care Team Providers Care Factorer Name Role Phone Unavailable Primary Care Provider Unavailabl e Source Comments PLEASE NOTE, if this patient is a minor, it may be UNLAWFUL to discuss sensitive information that is contained in these records (such as FAMILY PLANNING, MENTAL HEALTH or SUBSTANCE ABUSE) with the minor patient's parent or other person without the patient's specific authorization.[facility] Immunizations Name Administration Dates Next Due Moderna COVID-19 Vaccine, re d cap blue label, 12+ Primary Series 10/22/2021,03/17/2021,02/12/2021 Social History Tobacco Use Types Packs/Day Years Used Date Smoking Tobacco: Never Assessed Social Connections Answer Date Recorded Social Connections and Isolation 0 10/07/2021 Financial Resource Strain Answer Date R ecorded Financial Resource Strain 0 2020 Stress Answer Date Recorded Stress 0 10/07/2021 Physical Activity Answer Date Recorded Physical Activity 0 10/07/2021 Food Insecurity Answer Date Recorded Food 0 10/07/2021 Transportation Needs Answer Date Record ed Transportation 0 10/07/2021 Housing Stability Answer Date Recorded Housing 0 10/07/2021 Safety and Environment Answer Date Noah rded Safety 0 10/07/2021 Utilities Answer Date Recorded Utilities 0 10/07/2021 Employment Answer Date Recorded Employment 0 10/07/2021 Sex and Gender Information Value Date Recorded Sex Assigned at Not on file Legal Sex Male 11:36 AM PDT Gender Identity Not on file Sexual Orientation Not on file Plan of Treatment Health Maintenance Due Date Last Done Comments Diabetes Screening 1989 Hepatitis C Screening 1989 Tobacco Screening 1989 HIV Screening 2004 Hypertension Screening (#1) 2007 Imm-Hepatitis B (1 of 3 - 19 + 3-dose series) 2008 [id number] ( season) 2024 10/22/2021, 03/17/2021, 02/12/2021 Imm-Influenza (#1) 2024 09/02/2020, 1 2018, 09/06/2018, Additional history exists Alcohol and Drug Screen 11/08/2024 Depression Annual Screen 11/08/2024 Imm-DTaP/Tdap/Td (2 - Td or Tdap) 01/16/2026 016 Insurance [facility] [address] ACO
--- OUTSIDE RECORDS SUMMARY | 2024-12-20 12:42 | XMS_ITS | Encounter Summary ---
Author Organization [facility] [facility] Address [address] [place] [address] 7 [place] [address] Care Team Providers Care Rip Machine Operator Name Role Phone Reed Cortes MD Primary Care Prov ider Lynn Colon MD Primary Care Provider [phone] Encounter Details Date Type Department Care Team (Latest Contact Info) Description 01/23/2019 Abstract [facility] CONVERSIONS Dental, Provider, DDS Social History Tobacco [...] 1:00 PM EST Office Visit [facility] ADULT DENTAL [address] [place] [address] Valerie Go 01/18/2025 10:15 AM EDT Office Visit [facility] MED & PEDS [address] [place] [address] Lynn Colon MD [address] [place] [address] documented as of this encounter Visit Diagnoses Not on filedocumented in this encounter Care Teams Rip Machine Operator Relationship Specialty Start Date End Date Reed Cortes MD [address] [place] [address] PCP - General Internal Medicine 03/12/20 12/19/24 Lynn Colon MD [address] [place], [place] [address] [address] PCP - General Internal Medicine 12/20/24 Lucie Blankenship Bag Machine HelperStoreroom Supervisor 02/02/24 documented as of this encounter
--- OUTSIDE RECORDS SUMMARY | 2024-12-20 12:42 | XMS_ITS | Encounter Summary ---
Author Organization [employer] Address [address] [facility] [address]t [place] [address] Care Team Providers Care Cigarette Examiner Name Role Phone Reed Cortes MD Primary Care Prov ider Encounter Details Date Type Department Care Team ([facility] st Contact Info) Description 12/19/2024 Telephone [facility] & PEDS [address] [place], [place] [phone] Reed Cortes MD [address] [place] [address] Social History Tobacco Use Types Packs/Day Years [...] encounter Miscellaneous Notes * Telephone Encounter - Abida Barnes RN - 12/19/2024 12:12 PM EST Pt mom walked in stating pt needs to be seen for decreased appetite x months and most recently pt has been only eating sweets and soda. Mom states pt has had a few instances of lightheadedness but noLOC. Mom denies any GI issues and drinks primarily soda and when the soda runs out, he drinks juiceor water. Mom is requesting labs. Mom agrees to bring pt tomorrow for eval. Mom stated provider transfer request was made and was questioning why pt PCP is still Patricio. Mom was explained that message was sent to Director on 10/2023 and Director tried calling to find out why the pt is requesting a transfer and why pt wants to see a female. VM was left and pt never returned call. Mom advised that pt needs to speak with consulting technical manager and explain why the request for a transfer is being requested andif there are legitimate concerns will try to transfer to another provider. Mom agrees with plan. documented in this encounter Plan of Treatment Upcoming Encounters Date Type Department Care Team (Late st Contact Info) Description 01/05/2025 1:00 PM EST Office Visit [facility] ADULT DENTAL [address] [place] [address] Valerie Go 01/18/2025 10:15 AM EDT Office Visit [facility] MED & PEDS [address] [place] [address] Lynn Colon MD [address] [place] [address] documented as of this encounter Visit Diagnoses Not on filedocumented in this encounter Additional Health Concerns Assessment Noted Time PHQ-9 Depression Total Score: 3 03/27/20 24 1:07 PM EDT documented as of this encounter Care Teams Cigarette Examiner Relationship Specialty Start Date End Date Reed Cortes MD [address] [place] [address] PCP - General Internal Medicine 03/12/20 12/19/24 Lucie Blankenship Green Feed AttendantBrass Wind Instruments Tube Bender 02/02/24 documented as of this encounter
--- OUTSIDE RECORDS SUMMARY | 2024-12-20 12:42 | XMS_ITS | Encounter Summary ---
Author Organization [employer] Address [address] [facility] 7 [place] [address] Care Team Providers Care Natural Resource Technician Name Role Phone Lynn Colon MD Primary Care Provider [phone] Reason for Visit * Reason Onset Date Comments Change PCP 12/20/2024 Encounter Details Date Type Department Care Team ([facility] Contact Info) Description 12/20/[address] [facility] MED & PEDS [address] [place] [address] Lynn Colon MD [address] [place] [address] Change PCP Social History Tobacco Use Types Packs/Day Years [...] encounter Miscellaneous Notes * Telephone Encounter - Vivienne Barnes - 12/20/2024 11:14 AM EST Patient is requesting to change pcp from to Dr. Jack. Patient had previously requestedto change pcp and change hasn't been made. Patient states he had connected very well with uring one of his visit and would like to continue with her care. documented in this encounter Plan of Treatment Upcoming Encounters Date Type Department Care Team (Late st Contact Info) Description 01/05/2025 1:00 PM EST Office Visit [facility] ADULT DENT[facility] [address] [place] [address] Valerie Go 01/18/2025 10:15 AM EDT Office Visit [facility] MED & PEDS [address] [place] [address] Lynn Colon MD [address] [place] [address] documented as of this encounter Visit Diagnoses Not on filedocumented in this encounter Additional Health Concerns Assessment Noted Time PHQ-9 Depression Total Score: 3 03/27/20 24 1:07 PM EDT documented as of this encounter Care Teams Natural Resource Technician Relationship Specialty Start Date End Date Lynn Colon MD [address] [place] [phone] PCP - General Internal Medicine 12/20/24 Lucie Blankenship Warehouse Distribution ManagerV Belt Coverer 02/02/24 documented as of this encounter
--- OUTSIDE RECORDS SUMMARY | 2024-12-20 12:42 | XMS_ITS | Clinical Summary ---
Author Organization [facility] ity Address [address] [place] [address] Care Team Providers Care Employment Program Representative Name Role Phone Fermin Yanes MD Primary Care Provider [phone] Social History Tobacco Use Types Packs/Day Years Used Date Smoking Tobacco: Never Assessed Sex and Gender Information Value Date Recorded Sex Assigned at Not on file Legal Sex Male 10:12 AM EST Gender Identity Not on file Sexual Orientation Not on file Plan of Treatment Health Maintenance Due Date Last Done Comments DTaP,Tdap,and Td Vaccines (1 - Tdap) 2008 Hepatitis B Vaccines (1 of 3 - 19+ 3-dose series) 2008 COVID-19 Vaccine (2023-2 5 season) 2024 Influenza Vaccine (#1) 2024 Cholesterol Screening (Lipid Panel) 09/01/2024 Depression Screening 09/01/2024 01/27/2023 HIV Screening 09/01/2024 Hepatitis C Screening 09/01/2024 Social Influencers of Health Screening 09/01/2024 HIB Vaccines Aged Out No longer eligi ble based on patient's age to complete this topic HPV Vaccines Aged Out No longer eligi ble based on patient's age to complete this topic Hepatitis A Vaccines Aged Out No long er eligible based on patient's age to complete this topic IPV Vaccines Aged Out No longer eligi ble based on patient's age to complete this topic MMR Vaccines Aged Out No longer eligi ble based on patient's age to complete this topic Meningococcal ACWY Vaccine Aged Out N o longer eligible based on patient's age to complete this topic Meningococcal B Vacine Aged Out No lo nger eligible based on patient's age to complete this topic Pneumococcal Vaccine: Pediat rics (0 to 5 Years) and At-Risk Patients (6 to 64 Years) Aged Out No longer eligi ble based on patient's age to complete this topic RSV Immunization Patients Un jo 20 months Aged Out No longer eligible b ased on patient's age to complete this topic Varicella Vaccines Aged Out No longer eligible based on patient's age to complete this topic Care Teams Employment Program Representative Relationship Specialty Start Date End Date Fermin Yanes MD [address] [place] [id number] PCP - General Internal Medicine 11/03/17
--- OUTSIDE RECORDS SUMMARY | 2024-12-20 12:42 | XMS_ITS | Encounter Summary ---
Author Organization [employer] Address [address] [facility] 7 [place] [address] Care Team Providers Care Compressed Gas Equipment Mechanic Name Role Phone Reed Cortes MD Primary Care Prov ider Reason for Visit * Reason Onset Date Comments Nurse Triage 12/12/2024 Encounter Details Date Type Department Care Team ([facility] st Contact Info) Description 12/12/2024 Telephone [facility] CH[facility] MED & PEDS [address] [place] [address] Reed Cortes MD [address] [place] [address] Nurse Triage Social History Tobacco Use Types Packs/Day Years [...] encounter Miscellaneous Notes * Telephone Encounter - Erma Dunlap RN - 12/12/2024 3:16 PM EST Called pt. No answer. Left message on pt. Voicemail to please call back [facility] nurses at [phone] and if this is an emergency to please go to ED. Called pt. Back x2. No answer. Mother had called and states chest pain is same as 08/29/24 [facility] ED - Costochondritis on right side of chest. Work up at that ED visit was Negative for Heart concerns. * Telephone Encounter - Irma [place] - 12/12/2024 1:54 PM EST Symptom: Chest Pain - Adult Outcome: Schedule an urgent appointment (within 1 hour) or talk to a nurse or provider soon Reason: Caller denied all higher acuity questions The caller accepted this outcome. Pt mother informs is having same symptoms from last er visit 08/29/24 documented in this encounter Plan of Treatment Upcoming Encounters Date Type Department Care Team (Late st Contact Info) Description 01/05/2025 1:00 PM EST Office Visit [facility] ADULT DENTAL [address] [place] [address] Valerie Go 01/18/2025 10:15 AM EDT Office Visit [facility] MED & PEDS [address] [place] [address] Lynn Colon MD [address] [place] [address] documented as of this encounter Visit Diagnoses Not on filedocumented in this encounter Additional Health Concerns Assessment Noted Time PHQ-9 Depression Total Score: 3 03/27/20 24 1:07 PM EDT documented as of this encounter Care Teams Compressed Gas Equipment Mechanic Relationship Specialty Start Date End Date Reed Cortes MD [address] [place] [address] PCP - General Internal Medicine 03/12/20 12/19/24 Lucie Blankenship Vocational Auto Body InstructorFarmworker Machine 02/02/24 documented as of this encounter
[2024-12-21 14:30] LABS: MANUAL DIFF FLAG NO
[2024-12-21 14:54] LABS: Basophils Percent Auto 0.4 % (0-2); Eosinophils Absolute Auto 0.3 X10*3/uL (0.0-0.4); Eosinophils Percent Auto 3.1 % (0-4); Hematocrit 41.8 % (42.0-52.0); Hemoglobin 14.4 g/dl (14.0-18.0); Imm Gran Abs Auto 0.03 X10*3/uL (0.00-0.03); Imm Gran Pct Auto 0.4 % (0.0-0.4); Lymphocytes Percent Auto 23.8 % (20-40); Mean Corpuscular HGB Conc 34.4 g/dl (31.0-36.0); Mean Corpuscular Hemoglobin 30.3 pg (27.0-33.0); Monocytes Absolute Auto 0.6 X10*3/uL (0.1-1.2); Monocytes Percent Auto 7.3 % (2-11); Neutrophils Absolute Auto 5.4 x10*3/uL (2.0-8.3); Platelet Count 265 X10*3/uL (160-400); Red Blood Count 4.75 X10*6/uL (4.60-5.80); Red Cell Distribution Width 14.6 % (11.0-16.0); White Blood Count 8.3 X10*3/uL (4.8-10.8)
[2024-12-21 14:56] LABS: Estimated Average Glucose 103 mg/dL; Hemoglobin A1C 124.2144 umol/L; Hemoglobin A1c % 5.2 % (<6.0); Total Hemoglobin (HGBA1C) 3695.6174 umol/L
[2024-12-21 15:15] LABS: Alanine Aminotransferase 24 U/L (0-40); Albumin Level 4.3 g/dL (3.5-5.0); Alkaline Phosphatase 91 U/L (39-117); Anion Gap 9 (12-20); Aspartate Amino Transferase 24 U/L (5-37); Bilirubin Direct < 0.2 mg/dL (0.0-0.5); Bilirubin Total 0.2 mg/dL (0.0-1.0); Blood Urea Nitrogen 8 mg/dL (9-16); Carbon Dioxide 28 mmol/L (22-29); Chloride 105 mmol/L (96-108); Cholesterol 167 mg/dL (<200); Estimated Glomerular Filt Rate > 60; Glucose Fasting 89 mg/dL (60-99); HDL Cholesterol 39 mg/dL (>40); LDL Cholesterol Calculated 86 mg/dL (<100); Lipase 25 U/L (8-78); Potassium 4.2 mmol/L (3.3-5.1); Sodium 138 mmol/L (135-145); Total Protein 7.2 g/dL (6.5-8.0); Triglycerides 213 mg/dL (<150)
[2024-12-21 15:28] LABS: TSH reflex Free T4 0.67 uIU/mL (0.32-4.0)
[2024-12-21 15:42] LABS: Folate 2.2 ng/mL (> or = 4.0); Vitamin B12 195 pg/mL (200-900)
[2024-12-22 07:50] LABS: Syphilis Screen Nonreactive (Nonreactive)
[2024-12-22 07:54] LABS: HIV AB/AG Nonreactive (Nonreactive); HIV Num 1 0.05 S/CO (0.00-0.99); ~HepC Num1 0.04 S/CO (0.00-0.79); ~Hepatitis C Antibody Nonreactive (Nonreactive)
[2024-12-25 14:29] LABS: Anti Nuclear Antibody Screen NEGATIVE (NEGATIVE)
== END 2024-12-20 10:54 | disposition home or self-care (01) ==
LOC: HO.CHCLDS 10:53
PROVIDERS: Visit Provider Pediatrics
DX: R53.83 Other fatigue (principal); Z87.898 Personal history of other specified conditions
CPT/HCPCS: 36415; 80048; 80061; 80076; 82306; 82607; 82746; 83036; 83690; 84443; 85025; 86038; 86780; 86803; 87389

== ENCOUNTER 2025-01-03 11:37 | Outpatient (REF) | payer MEDICAID, SELFPAY ==
--- OUTSIDE RECORDS SUMMARY | 2025-01-03 14:35 | XMS_ITS | Encounter Summary ---
Author Organization [employer] Address [address] [facility] 7t [place] [address] Care Team Providers Care Earthmoving Plant Operator Name Role Phone Reed Cortes MD Primary Care Prov ider Lynn Colon MD Primary Care Provider [phone] Reason for Visit * Reason Onset Date Comments call back 12/30/2022 Encounter Details Date Type Department Care Team ([facility] st Contact Info) Description 12/30/2022 Telephone [facility] MED[facility] [address] [place] [address] Reed Cortes MD [address] [place] [address] call back Social History Tobacco Use Types [...] Encounters Date Type Department Care Team ([facility] st Contact Info) Description 01/05/2025 1:00 PM EST Office Visit [facility] ADULT DENTAL [address] [place] [address] Valerie Go 01/18/2025 10:15 AM EDT Office Visit [facility] MED & PEDS [address] [place] [address] Lynn Colon MD [address] [place] [address] 01/24/2025 2:00 PM EDT Nurse Only [facility] MED & PEDS [address] [place] [address] documented as of this encounter Visit Diagnoses Not on filedocumented in this encounter Care Teams Earthmoving Plant Operator Relationship Specialty Start Date End Date Reed Cortes MD [address] [place] [address] PCP - General Internal Medicine 03/12/20 12/19/24 Lynn Colon MD [address] [place] [id number] PCP - General Internal Medicine 12/20/24 Lucie Blankenship Presentation SpecialistSurvey Analyst 02/02/24 documented as of this encounter
--- OUTSIDE RECORDS SUMMARY | 2025-01-03 14:35 | XMS_ITS | Encounter Summary ---
Author Organization [employer] [facility] Address [address] [place] [address] 7 [place] [address] Care Team Providers Care Box Truck Washer Name Role Phone Reed Cortes MD Primary Care Prov ider Lynn Colon MD Primary Care Provider [phone] Encounter Details Date Type Department Care Team (Latest Contact Info) Description 01/23/2019 Abstract [facility] CONVERSIONS Dental, Provider, DDS Social History Tobacco [...] Upcoming Encounters Date Type Department Care Team ( st Contact Info) Description 01/05/2025 1:00 PM EST Office Visit [facility] ADULT DENTAL [address] [place] [address] Valerie Go 01/18/2025 10:15 AM EDT Office Visit [facility] MED & PEDS [address] [place] [address] Lynn Colon MD [address] [place] [address] 01/24/2025 2:00 PM EDT Nurse Only [facility] MED & PEDS [address] [place] [address] documented as of this encounter Visit Diagnoses Not on filedocumented in this encounter Care Teams Box Truck Washer Relationship Specialty Start Date End Date Reed Cortes MD [address] [place] [address] PCP - General Internal Medicine 03/12/20 12/19/24 Lynn Colon MD [address] [place] [address] PCP - General Internal Medicine 12/20/24 Lucie Blankenship Photographic Laboratory TechnicianStoneworking Sander 02/02/24 documented as of this encounter
--- OUTSIDE RECORDS SUMMARY | 2025-01-03 14:35 | XMS_ITS | Encounter Summary ---
Author Organization [employer] [facility] Address [address] [place] [address] 7 [place] [address] Care Team Providers Care Airplane Mechanic Apprentice Name Role Phone Reed Cortes MD Primary Care Prov ider Lynn Colon MD Primary Care Provider [phone] Encounter Details Date Type Department Care Team (Latest Contact Info) Description 06/12/2021 Abstract [facility] CONVERSIONS Dental, Provider, DDS Social History Tobacco [...] EST Office Visit [facility] ADULT DENTAL [address] [place] [address] Valerie Go 01/18/2025 10:15 AM EDT Office Visit [facility] MED & PEDS [address] [place] [address] Lynn Colon MD [address] [place] [address] 01/24/2025 2:00 PM EDT Nurse Only [facility] [address] [place] [address] documented as of this encounter Visit Diagnoses Not on filedocumented in this encounter Care Teams Airplane Mechanic Apprentice Relationship Specialty Start Date End Date Reed Cortes MD [address] [place] [address] PCP - General Internal Medicine 03/12/20 12/19/24 Lynn Colon MD [address] [place] [address] PCP - General Internal Medicine 12/20/24 Lucie Blankenship Licensed WeigherSensitizer 02/02/24 documented as of this encounter
--- OUTSIDE RECORDS SUMMARY | 2025-01-03 14:35 | XMS_ITS | Encounter Summary ---
Author Organization [employer] Address [address] [facility] 7t [place] [address] Care Team Providers Care Acid Pumper Name Role Phone Reed Cortes MD Primary Care Prov ider Encounter Details Date Type Department Care Team ([facility] st Contact Info) Description 12/19/2024 Telephone [facility] CHC MED & PEDS [address] [place], [place] [phone] Reed Cortes MD [address] [place] [address] Social History Tobacco Use Types Packs/Day Years [...] advised that pt needs to speak with stock room manager and explain why the request for a transfer is being requested andif there are legitimate concerns will try to transfer to another provider. Mom agrees with plan. documented in this encounter Plan of Treatment Upcoming Encounters Date Type Department Care Team (Late st Contact Info) Description 01/05/2025 1:00 PM EST Office Visit [facility] ADULT DENTAL [address] [place] [address] Valerie Go 01/18/2025 10:15 AM EDT Office Visit [facility] MED & PEDS [address] [place] [address] Lynn Colon MD [address] [place] [address] 01/24/2025 2:00 PM EDT Nurse Only [facility] MED & PEDS [address] [place] [address] documented as of this encounter Visit Diagnoses Not on filedocumented in this encounter Additional Health Concerns Assessment Noted Time PHQ-9 Depression Total Score: 3 03/27/20 24 1:07 PM EDT documented as of this encounter Care Teams Acid Pumper Relationship Specialty Start Date End Date Reed Cortes MD [address] [place] [address] PCP - General Internal Medicine 03/12/20 12/19/24 Lucie Blankenship Pump House OperatorLaboratory Equipment Installer 02/02/24 documented as of this encounter
--- OUTSIDE RECORDS SUMMARY | 2025-01-03 14:35 | XMS_ITS | Clinical Summary ---
Author Organization [facility] ity Address [address] [place] [address] Care Team Providers Care Mimeograph Operator Name Role Phone Fermin Yanes MD Primary Care Provider [phone] Social History Tobacco Use Types Packs/Day Years [...] age to complete this topic Care Teams Mimeograph Operator Relationship Specialty Start Date End Date Fermin Yanes MD [address] [place] [id number] PCP - General Internal Medicine 11/03/17
--- OUTSIDE RECORDS SUMMARY | 2025-01-03 14:35 | XMS_ITS | Encounter Summary ---
Author Organization [employer] Address [address] [facility] 7 [place] [address] Care Team Providers Care Surface [employer] Breathing Apparatus Name Role Phone Lynn Colon MD Primary Care Provider [phone] Encounter Details Date Type Department Care Team ([facility] Contact Info) Description 12/20/2024 10:00 AM EST Office Visit [facility] MED & PEDS [address], [place] [phone] Lynn Colon MD [address] [place] [address] Other fatigue (Primary Dx); History of weight [...] a lot of dental work done at [facility] dental clinic but denies having dental [...] Upcoming Encounters Date Type Department Care Team ([facility] st Contact Info) Description 01/05/2025 1:00 PM EST Office Visit [facility] ADULT DENTAL [address] [place] [address] Valerie Go 01/18/2025 10:15 AM EDT Office Visit [facility] [address] [place] [phone] Lynn Cooln MD [address] [place] [address] 01/24/2025 2:00 PM EDT Nurse Only [facility] [address] [place] [address] Scheduled Orders Name Type Priority Associated Diagnoses Orde r Schedule Chlamydia/N. Gonorrhoeae RNA, TMA, Urogenitial Microbiology Routine Other fatigue History of weight loss Ordered: 12/20/2024 Urinalysis with reflex microscopic Lab Routine Other fatigue History of weight loss Expected: 12/20/2024, Expires: 12/20/2025 documented as of this encounter Procedures Procedure Name Priority Date/Time Associated Diagnosis Comments POCT HEMOGLOBIN Routine 12/20/2024 11:06 AM EST Other fatigue POCT GLUCOSE Routine 12/20/2024 11:04 AM EST Other fatigue SYPHILIS SCREEN Routine 12/20/2024 11:00 AM EST Other fatigue History of weight loss BASIC METABOLIC PANEL, FASTING Routine 12/20/2024 11:00 AM EST Other fatigue History of weight loss VITAMIN D,25-OH,TOTAL,IA Routine 12/20/2024 11:00 AM EST Other fatigue History of weight loss VITAMIN B12/FOLATE, SERUM PANEL Routine 12/20/2024 11:00 AM EST Other fatigue History of weight loss TSH W/REFLEX TO FT4 Routine 12/20/2024 1 1:00 AM EST Other fatigue History of weight loss CBC WITH AUTO DIFFERENTIAL Routine 12/20/2024 11:00 AM EST Other fatigue History of weight loss HEPATITIS C AB W/REFL TO HCV RNA, QN, PCR Routine 12/20/2024 11:00 AM EST Other fatigue History of weight loss HIV 1/2 ANTIGEN/ANTIBODY, FOURTH GENERATION W/RFL Routine 12/20/2024 11:00 AM EST Other fatigue History of weight loss BROOKE SCREEN, IFA, W/REFL TITER AND PATTERN Routine 12/20/2024 11:00 AM EST Other fatigue History of weight loss LIPASE Routine 12/20/2024 11:00 AM EST History of weight loss HEMOGLOBIN A1C Routine 12/20/2024 11:00 AM EST Other fatigue History of weight loss HEPATIC FUNCTION PANEL Routine 12/20/2024 11:00 AM EST Other fatigue History of weight loss LIPID PANEL, STANDARD Routine 12/20/2024 11:00 AM EST Other fatigue History of weight loss documented in this encounter Results * POCT [...] Media Lot # [id number] Lot# Expiration Date Blood Capillary blood specimen / Unknown 12/20/2024 11:04 AM EST us Lynn Colon MD POINT OF CARE TEST ENTER/EDIT ORDERABLES Final Result * Lipase (12/20/2024 11:00 AM EST) Pathologist [facility] Lipase 25 8 - 78 U/L [facility] Blood Venous blood specimen / Unknown 12/20/2024 11:00 AM EST 12/21/2024 2:28 PM EST us Lynn Colon MD LAB BLOOD ORDERABLES Final Re sult Performing Organization Address [facility] Co de Phone Number [facility] [address] [place] [phone] * Hepatitis C Antibody with Reflex to HCV, RNA, Quantitative, Real-Time PCR (12/20/2024 11:00 AM EST) Pathologist [facility] Hepatitis C Antibody Nonreactive Nonreactive [facility] Comment:Antibodies to HCV no t detected; does not exclude early acuteHCV infection. Blood Venous blood specimen / Unknown 12/20/2024 11:00 AM EST 12/21/2024 2:28 PM EST us Lynn Colon MD LAB BLOOD ORDERABLES Final Re sult Performing Organization Address [facility] Co de Phone Number [facility] [address] [place] [phone] * HIV-1/2 Antigen and Antibodies, Fourth Generation, with Reflexes (12/20/2024 11:00 AM EST) HIV AB/AG Nonreactive Nonreactive [facility] Comment:HIV-1 p24 Ag and/or HIV-1/HIV-2 Ab not detected.A test result that is nonreactive does not exclude thepossibility of exposure to or infection with HIV-1 and/orHIV-2. Nonreactive results in this assay for individualswith prior exposure to HIV-1 and/or HIV-2 may be due toantigen and antibody levels that are below the limit ofdetection of this assay.The [employer] HIV Ag/Ab Combo assay result andsupplemental assay results should be interpreted inconjunction with the patient's clinical presentation,history and other laboratory results. If the results areinconsistent with clinical evidence, additional testing issuggested to confirm the result. Blood Venous blood specimen / Unknown 12/20/2024 11:00 AM EST 12/21/2024 2:28 PM EST us Lynn Colon MD LAB BLOOD ORDERABLES Final Re sult Performing Organization Address [facility] Co de Phone Number [facility] [address] [place] [phone] * Syphilis Screen (12/20/2024 11:00 AM EST) Syphilis Screen Nonreactive Nonreactive [facility] Blood 12/20/2024 11:0 0 AM EST 12/21/2024 2:28 PM EST us Lynn Colon MD LAB BLOOD ORDERABLES Final Re sult Performing Organization Address [facility] de Phone Number [facility] [address] [place] [phone] * TSH W/Reflex to FT4 (12/20/2024 11:00 AM EST) TSH reflex Free T4 0.67 0.32 - 4.0 uIU/mL [facility] Blood Venous blood specimen / Unknown 12/20/2024 11:00 AM EST 12/21/2024 2:28 PM EST us Lynn Colon MD LAB BLOOD ORDERABLES Final Re sult Performing Organization Address [facility] Co de Phone Number [facility] [address] [place] [address] [phone] * (ABNORMAL) Vitamin B12/Folate, Serum Panel (12/20/2024 11:00 AM EST) Vitamin B12 195(L) 200 - 900 pg/mL [facility] Comment:NORMAL 200-900 PG/ML INDETERMINATE 160-199 PG/ML DEFICIENT < 160 PG/ML Folate 2.2(L) > or = 4.0 ng/mL [facility] Comment:Reference Values:> o r = 4.0 ng/mL< 4.0 ng/mL suggests folate deficiency Methotrexate, aminopterin and folinic acid(leucovorin) are chemotherapeutic agents whose molecularstructures are similar to folate; therefore, the Architectfolate assay cannot be used for patients using these drugs. Blood Venous blood specimen / Unknown 12/20/2024 11:00 AM EST 12/21/2024 2:28 PM EST us Lynn Colon MD LAB BLOOD ORDERABLES Final Re sult [facility] [address] [place] [phone] [phone] * (ABNORMAL) Vitamin D, 25-Hydroxy, Total, Immunoassay (12/20/2024 11:00 AM EST) Vitamin D 25-OH Total 23.0(L) >30 ng/mL [facility] Comment:Health Based Referen ce Values*< 20 ng/mL Holjsevht50-54 ng/mL Insufficient> 30 ng/mL Sufficient*Ankita JIMÉNEZ. N Engl J Med. 2007;357:266-280Care must be taken in interpreting Vitamin D results fromdifferent laboratories and methodologies. Published datademonstrated that results from patients undergoinghemodialysis may show a negative bias when tested withvarious automated 25-OH vitamin D assays when compared toLC-MS/MS.When testing samples from patients whose predominant form ofVitamin D is Vitamin D2, such as patients receiving VitaminD2 supplementation, results that are subtherapeutic shouldbe confirmed with another method such as LC-MS/MS. Blood Venous blood specimen / Unknown 12/20/2024 11:00 AM EST 12/21/2024 2:28 PM EST Lynn Colon MD LAB BLOOD ORDERABLES Final Re sult Performing Organization Address [facility] de Phone Number [facility] [address] [place] [phone] * Hepatic Function Panel (12/20/2024 11:00 AM EST) Bilirubin, Total 0.2 0.0 - 1.0 mg/dL [facility] Bilirubin, Direct <0.2 0.0 - 0.5 mg/dL [facility] Aspartate Amino Transferase 24 5 - 37 U/L [facility] Alanine Aminotransferase 24 0 - 40 U/L [facility] Total Protein 7.2 6.5 - 8.0 g/dL [facility] Albumin Level 4.3 3.5 - 5.0 g/dL [facility] Alkaline Phosphatase 91 39 - 117 U/L [facility] Blood Venous blood specimen / Unknown 12/20/2024 11:00 AM EST 12/21/2024 2:28 PM EST Lynn Colon MD LAB BLOOD ORDERABLES Final Re sult Performing Organization Address [facility] de Phone Number [facility] [address] [place] [phone] * Hemoglobin A1c (12/20/2024 11:00 AM EST) Hemoglobin A1c 5.2 <6.0 % [facility] Comment:Hemoglobin A1C Refer ence Range Adults: 4.8 - 6.0 % Non diabetic: < 6.0 % Goal: < 7.0 %Additional Action Suggested: > 8.0 %Note: Hemoglobin A1c results are invalid for patients with abnormal amounts of HbF. Blood transfusions may impact the HbA1c concentration in the patient sample. Estimated Average Glucose 103 mg/dL [facility] Comment:eAG = Estimated ave rage glucose which is %A1C expressed asaverage glucose, using the formula of the N3U-WbimyveEqemklc Glucose study (ADAG), Diabetes Care, Vol.31,#8,Jun. 2007 Blood Venous blood specimen / Unknown 12/20/2024 11:00 AM EST 12/21/2024 2:28 PM EST us Lynn Colon MD LAB BLOOD ORDERABLES Final Re sult [facility] [address], [place] [phone] * (ABNORMAL) CBC auto differential (12/20/2024 11:00 AM EST) White Blood Count 8.3 4.8 - 10.8 X10*3/uL [facility] Red Blood Count 4.75 4.60 - 5.80 X10*6/uL [facility] Hemoglobin 14.4 14.0 - 18.0 g/dl [facility] Hematocrit 41.8(L) 42.0 - 52.0 % [facility] Mean Corpuscular Volume 88.0 80.0 - 98.0 fL [facility] Mean Corpuscular Hemoglobin 30.3 27.0 - 33.0 pg [facility] Mean Corpuscular HGB Conc 34.4 31.0 - 36.0 g/dl [facility] Red Cell Distribution Width 14.6 11.0 - 16.0 % [facility] Platelet Count 265 160 - 400 X10*3/uL [facility] Mean Platelet Volume 10.0 9.4 - 12.4 fL [facility] Neutrophils Percent Auto 65.0 45 - 73 % [facility] Imm Gran Pct Auto 0.4 0.0 - 0.4 % [facility] Lymphocytes Percent Auto 23.8 20 - 40 % [facility] Monocytes Percent Auto 7.3 2 - 11 % [facility] Eosinophils Percent Auto 3.1 0 - 4 % [facility] Basophils Percent Auto 0.4 0 - 2 % [facility] NRBC Pct Auto 0.0 0.0 - 0.2 /100WBC [facility] Neutrophils Absolute Auto 5.4 2.0 - 8.3 x10*3/uL [facility] Imm Gran Abs Auto 0.03 0.00 - 0.03 X10*3/uL [facility] Lymphocytes Absolute Auto 2.0 1.2 - 4.9 X10*3/uL [facility] Monocytes Absolute Auto 0.6 0.1 - 1.2 X10*3/uL [facility] Eosinophils Absolute Auto 0.3 0.0 - 0.4 X10*3/uL [facility] Basophils Absolute Auto 0.0 0.0 - 0.2 X10*3/uL [facility] NRBC Abs Auto 0.000 0.0 - 0.012 X10*3/uL [facility] Blood Venous blood specimen / Unknown 12/20/2024 11:00 AM EST 12/21/2024 2:28 PM EST us Lynn Colon MD LAB BLOOD ORDERABLES Final Re sult [facility] [address] [place] [phone] * BROOKE Screen,IFA, with Reflex to Titer and Pattern (12/20/2024 11:00 AM EST) Anti Nuclear Antibody Screen NEGATIVE NEGATIVE [facility] Comment:BROOKE IFA is a first l ine screen for detecting thepresence of up to approximately 150 autoantibodies invarious autoimmune diseases. A negative BROOKE IFA resultsuggests an BROOKE-associated autoimmune disease is notpresent at this time, but is not definitive. If thereis high clinical suspicion for Sjogren's syndrome,testing for anti-SS-A/Ro antibody should be considered.Anti-Krystin-1 antibody should be considered for clinicallysuspected inflammatory myopathies.AC-0: NegativeInternational Consensus on BROOKE Patterns(https://doi.org/10.1515/yfee-4656-2381)For additional information, please refer tohttp://education.[employer]/faq/TZN027(This link is being provided for informational/educational purposes only.)THIS TEST WAS PERFORMED AT:[facility] [place] [phone] ONTIVEROS MD BROOKE Titer [facility] BROOKE Pattern [facility] BROKOE TITER 2 (REF LAB) [facility] BROOKE Pattern 2 [facility] BROOKE TITER 3 [facility] BROOKE PATTERN 3 [facility] Blood Venous blood specimen / Unknown 12/20/2024 11:00 AM EST 12/21/2024 2:28 PM EST us Lynn Colon MD LAB BLOOD ORDERABLES Final Re sult [facility] [address] [place] [phone] * (ABNORMAL) Basic Metabolic Panel, Fasting (12/20/2024 11:00 AM EST) Sodium 138 135 - 145 mmol/L [facility] Potassium 4.2 3.3 - 5.1 mmol/L [facility] Chloride 105 96 - 108 mmol/L [facility] Carbon Dioxide 28 22 - 29 mmol/L [facility] Anion Gap 9(L) 12 - 20 [facility] Urea Nitrogen (BUN) 8(L) 9 - 16 mg/dL [facility] Creatinine, Serum 0.86 0.5 - 1.4 mg/dL [facility] Creatinine Clr Calc Pharmacy [facility] Comment:Unable to calculate eCrCL; all parameters not provided. Estimated Glomerular Filt Rate >60 [facility] Comment:Chronic Kidney Disea se: Estimated GFR < 60 mL/min/[id number] Kidney Disease: Estimated GFR < 15 mL/min/1.73m2 Glucose Fasting 89 60 - 99 mg/dL [facility] Calcium 9.0 8.4 - 10.2 mg/dL [facility] Blood Venous blood specimen / Unknown 12/20/2024 11:00 AM EST 12/21/2024 2:28 PM EST Lynn Colon MD LAB BLOOD ORDERABLES Final Re sult Performing Organization Address [facility] de Phone Number [facility] [address] [place] [phone] * (ABNORMAL) Lipid Panel, Standard (12/20/2024 11:00 AM EST) Triglycerides 213(H) <150 mg/dL [facility] Comment:Slight Lipemia.Milo able Triglyceride: less than 150 mg/dLBorderline High Triglyceride 150-199 mg/dLHigh Triglyceride: 200-499 mg/dLVery High Triglyceride: greater than or equal to 5OO mg/dL Cholesterol 167 <200 mg/dL [facility] Comment:Desirable Cholestero l: less than 200 mg/dLBorderline High Cholesterol: 200-239 mg/dLHigh Cholesterol: greater than 239 mg/dL LDL Cholesterol Calculated 86 <100 mg/dL [facility] Comment:Desirable LDL: less than 100 mg/dLNear Optimal/Above Optimal LDL: 110- 129 mg/dLBorderline High LDL: 130-159 mg/dLHigh LDL: 160-189 mg/dLVery High LDL: greater than or equal to 190 mg/dL HDL Cholesterol 39(L) >40 mg/dL [facility] Comment:Desirable HDL: great er than 40 mg/dL Note: This HDL assay may give artificially low results in patients with liver disease. Blood Venous blood specimen / Unknown 12/20/2024 11:00 AM EST 12/21/2024 2:28 PM EST Lynn Colon MD LAB BLOOD ORDERABLES Final Re sult Performing Organization Address [facility]/ZIP Co de Phone Number [facility] [address] [place] [phone] documented in this encounter Visit Diagnoses Diagnosis Other fatigue- Primary History of weight loss Vitamin D deficiency Vitamin B12 deficiency Other B-complex deficiencies Mood disorder (CMS/HCC) Unspecified episodic mood disorder documented in this encounter Additional Health Concerns Assessment Noted Time PHQ-9 Depression Total Score: 3 03/27/20 24 1:07 PM EDT documented as of this encounter Care Teams Surface Supply Breathing Apparatus Relationship Specialty Start Date End Date Lynn Colon MD [address] [facility] [place] [address] PCP - General Internal Medicine 12/20/24 Lucie Blankenship Supervisor Contact [employer] Covering Machine Operator 02/02/24 documented as of this encounter
--- OUTSIDE RECORDS SUMMARY | 2025-01-03 14:35 | XMS_ITS | Encounter Summary ---
Author Organization [email or web address] Address [address] [facility] [address] [place] [address] Care Team Providers Care Watch Dial Stoner Name Role Phone Lynn Cloon MD Primary Care Provider [phone] Encounter Details Date Type Department Care Team ([facility] Contact Info) Description 12/26/2024 Telephone [facility] [address] [place], [place] [phone] Lynn Colon MD [address] [place] [address] Social History Tobacco Use Types Packs/Day Years [...] encounter Miscellaneous Notes * Telephone Encounter - Lynn Colon MD - 12/26/2024 12:32 PM EST Result Communication Resulted Orders POCT Glucose Result Value Ref Range Glucose Blood, POC 118 60 - 200 mg/dL Comment: fasting QC Media Lot # [id number] Lot# Expiration Date 4,825 POCT Hemoglobin Result Value Ref Range Hemoglobin 14.8 13.0 - 17.0 QC Media Lot # [id number] Lot# Expiration Date 132,026 Lipid Panel, Standard Result Value Ref Range Triglycerides 213 (H) <150 mg/dL Comment: Slight Lipemia.Desirable Triglyceride: less than 150 mg/dLBorderline High Triglyceride 150-199 mg/dLHigh Triglyceride: 200-499 mg/dLVery High Triglyceride: greater than or equal to 5OO mg/dL Cholesterol 167 <200 mg/dL Comment: Desirable Cholesterol: less than 200 mg/dLBorderline High Cholesterol: 200-239 mg/dLHigh Cholesterol: greater than 239 mg/dL LDL Cholesterol Calculated 86 <100 mg/dL Comment: Desirable LDL: less than 100 mg/dLNear Optimal/Above Optimal LDL: 110-129 mg/dLBorderline High LDL:130-159 mg/dLHigh LDL: 160-189 mg/dLVery High LDL: greater than or equal to 190 mg/dL HDL Cholesterol 39 (L) >40 mg/dL Comment: Desirable HDL: greater than 40 mg/dL Note: This HDL assay may give artificially low results in patients with liver disease. Basic Metabolic Panel, Fasting Result Value Ref Range Sodium 138 135 - 145 mmol/L Potassium 4.2 3.3 - 5.1 mmol/L Chloride 105 96 - 108 mmol/L Carbon Dioxide 28 22 - 29 mmol/L Anion Gap 9 (L) 12 - 20 Urea Nitrogen (BUN) 8 (L) 9 - 16 mg/dL Creatinine, Serum 0.86 0.5 - 1.4 mg/dL Creatinine Clr Calc Pharmacy TNP Comment: Unable to calculate eCrCL; all parameters not provided. Estimated Glomerular Filt Rate >60 Comment: Chronic Kidney Disease: Estimated GFR < 60 mL/min/1.41v3Mhthzu Kidney Disease: Estimated GFR < 15 mL/min/1.73m2 Glucose Fasting 89 60 - 99 mg/dL Calcium 9.0 8.4 - 10.2 mg/dL BROOKE Screen,IFA, with Reflex to Titer and Pattern Result Value Ref Range Anti Nuclear Antibody Screen NEGATIVE NEGATIVE Comment: BROOKE IFA is a first line screen for detecting thepresence of up to approximately 150 autoantibodies invarious autoimmune diseases. A negative BROOKE IFA resultsuggests an BROOKE-associated autoimmune disease is notpresent at this time, but is not definitive. If thereis high clinical suspicion for Sjogren's syndrome,testing for anti-SS-A/Ro antibody should be considered.Anti-Krystin-1 antibody should be considered for clinicallysuspected inflammatory myopathies.AC-0: NegativeInternational Consensus on BROOKE Pa tterns(https://doi.org/10.1515/uhlr-0835-2111)For additional information, please refer tohttp://education.[employer]/faq/ZNG754(This link is being provided for informational/educational purposes only.)THIS TEST WAS PERFORMED AT:[email or web address] [place] [id number] ONTIVEROS MD BROOKE Titer TNP BROOKE Pattern TNP BROOKE TITER 2 (REF LAB) TNP BROOKE Pattern 2 TNP BROOKE TITER 3 TNP BROOKE PATTERN 3 TNP CBC auto differential Result Value Ref Range White Blood Count 8.3 4.8 - 10.8 X10*3/uL Red Blood Count 4.75 4.60 - 5.80 X10*6/uL Hemoglobin 14.4 14.0 - 18.0 g/dl Hematocrit 41.8 (L) 42.0 - 52.0 % Mean Corpuscular Volume 88.0 80.0 - 98.0 fL Mean Corpuscular Hemoglobin 30.3 27.0 - 33.0 pg Mean Corpuscular HGB Conc 34.4 31.0 - 36.0 g/dl Red Cell Distribution Width 14.6 11.0 - 16.0 % Platelet Count 265 160 - 400 X10*3/uL Mean Platelet Volume 10.0 9.4 - 12.4 fL Neutrophils Percent Auto 65.0 45 - 73 % Imm Gran Pct Auto 0.4 0.0 - 0.4 % Lymphocytes Percent Auto 23.8 20 - 40 % Monocytes Percent Auto 7.3 2 - 11 % Eosinophils Percent Auto 3.1 0 - 4 % Basophils Percent Auto 0.4 0 - 2 % NRBC Pct Auto 0.0 0.0 - 0.2 /100WBC Neutrophils Absolute Auto 5.4 2.0 - 8.3 x10*3/uL Imm Gran Abs Auto 0.03 0.00 - 0.03 X10*3/uL Lymphocytes Absolute Auto 2.0 1.2 - 4.9 X10*3/uL Monocytes Absolute Auto 0.6 0.1 - 1.2 X10*3/uL Eosinophils Absolute Auto 0.3 0.0 - 0.4 X10*3/uL Basophils Absolute Auto 0.0 0.0 - 0.2 X10*3/uL NRBC Abs Auto 0.000 0.0 - 0.012 X10*3/uL Hemoglobin A1c Result Value Ref Range Hemoglobin A1c 5.2 <6.0 % Comment: Hemoglobin A1C Reference Range Adults: 4.8 - 6.0 % Non diabetic: < 6.0 % Goal: < 7.0 %Additional Action Suggested: > 8.0 %Note: Hemoglobin A1c results are invalid for patients with abnormal amounts of HbF. Blood transfusions may impact the HbA1c concentration in the patient sample. Estimated Average Glucose 103 mg/dL Comment: eAG = Estimated average glucose which is %A1C expressed asaverage glucose, using the formula of the C3W-YjypnrxJivjsiz Glucose study (ADAG), Diabetes Care, Vol.31,#8,Jun. 2007 Hepatic Function Panel Result Value Ref Range Bilirubin, Total 0.2 0.0 - 1.0 mg/dL Bilirubin, Direct <0.2 0.0 - 0.5 mg/dL Aspartate Amino Transferase 24 5 - 37 U/L Alanine Aminotransferase 24 0 - 40 U/L Total Protein 7.2 6.5 - 8.0 g/dL Albumin Level 4.3 3.5 - 5.0 g/dL Alkaline Phosphatase 91 39 - 117 U/L Vitamin D, 25-Hydroxy, Total, Immunoassay Result Value Ref Range Vitamin D 25-OH Total 23.0 (L) >30 ng/mL Comment: Health Based Reference Values*< 20 ng/mL Dfjiipahp25-87 ng/mL Insufficient> 30 ng/mL Sufficient*Ankita JIMÉNEZ. N [...] confirmed with another method such as LC-MS/MS. Vitamin B12/Folate, Serum Panel Result Value Ref Range Vitamin B12 195 (L) 200 - 900 pg/mL Comment: NORMAL 200-900 PG/ML INDETERMINATE 160-199 PG/ML DEFICIENT < 160 PG/ML Folate 2.2 (L) > or = 4.0 ng/mL Comment: Reference Values:> or = 4.0 ng/mL< 4.0 ng/mL suggests folate deficiency Methotrexate, aminopterin and folinic acid(leucovorin) are chemotherapeutic agents whose molecularstructures are similar to folate; therefore, the Architectfolate assay cannot be used for patients using these drugs. TSH W/Reflex to FT4 Result Value Ref Range TSH reflex Free T4 0.67 0.32 - 4.0 uIU/mL Syphilis Screen Result Value Ref Range Syphilis Screen Nonreactive Nonreactive HIV-1/2 Antigen and Antibodies, Fourth Generation, with Reflexes Result Value Ref Range HIV AB/AG Nonreactive Nonreactive Comment: HIV-1 p24 Ag and/or HIV-1/HIV-2 Ab not detected.A test result that is nonreactive does not exclude thepossibility of exposure to or infection with HIV-1 and/orHIV-2. Nonreactive results in this assayfor individualswith prior exposure to HIV-1 and/or HIV-2 may be due toantigen and antibody levels that are below the limit ofdetection of this assay.The [employer] HIV Ag/Ab Combo assay result andsupplemental assay results should be interpreted inconjunction with the patient's clinical presentation,history and other laboratory results. If the results areinconsistent with clinical evidence, additional testing issuggested to confirm the result. Hepatitis C Antibody with Reflex to HCV, RNA, Quantitative, Real-Time PCR Result Value Ref Range Hepatitis C Antibody Nonreactive Nonreactive Comment: Antibodies to HCV not detected; does not exclude early acuteHCV infection. Lipase Result Value Ref Range Lipase 25 8 - 78 U/L 12:32 PM Results were successfully communicated with the patient and they acknowledged their understanding. documented in this encounter Plan of Treatment Upcoming Encounters Date Type Department Care Team (Late st Contact Info) Description 01/05/2025 1:00 PM EST Office Visit [facility] [address] [place] [address] Valerie Go 01/18/2025 10:15 AM EDT Office Visit [facility] [address] [place] [address] Lynn Colon MD [address] [place] [address] 01/24/2025 2:00 PM EDT Nurse Only [facility] [address] [place] [address] documented as of this encounter Visit Diagnoses Not on filedocumented in this encounter Additional Health Concerns Assessment Noted Time PHQ-9 Depression Total Score: 3 03/27/20 24 1:07 PM EDT documented as of this encounter Care Teams Watch Dial Stoner Relationship Specialty Start Date End Date Lynn Colon MD [address] [place] [address] PCP - General Internal Medicine 12/20/24 Lucie Blankenship Syrup Shed SupervisorMica Washer Gluer 02/02/24 documented as of this encounter
--- OUTSIDE RECORDS SUMMARY | 2025-01-03 14:35 | XMS_ITS | Encounter Summary ---
Author Organization [employer] Address [address] [facility] [address] [place] [address] Care Team Providers Care Event Manager Name Role Phone Lynn Colon MD Primary Care Provider [phone] Encounter Details Date Type Department Care Team (Latest Contact Info) Description 12/27/2024 2:00 PM EST Clinical Support [facility] [address] [place] [address] Shannan Hammer RN Vitamin D deficiency; Vitamin B12 deficiency Social History Tobacco Use Types Packs/Day [...] AM EDT documented as of this encounter Progress Notes * Shannan Hammer RN - 12/27/2024 2:00 PM EST S: Pt here for nurse visit B12 injection, today B12 standing order verified. Pt denies any difficulties with previous injection received. O: Cyanocobalamin 1,000mcg/ML, 1mL given on left deltoid muscle, pt tolerated well. A: Vitamin B12 Deficiency P: Pt may go home and return for next B12 injection, and bring Vitamin B12 vial to next appt. Advised to monitor injection site for any increased redness or swelling and follow up with PCP as needed.Pt agrees with plan and verbalized understanding. documented in this encounter Plan of Treatment Upcoming Encounters Date Type Department Care Team (Late st Contact Info) Description 01/05/2025 1:00 PM EST Office Visit [facility] [address] [place] [address] Valerie Go 01/18/2025 10:15 AM EDT Office Visit [facility] [address] [place] [address] Lynn Colon MD [address] [place] [address] 01/24/2025 2:00 PM EDT Nurse Only [facility] [address] [place] [address] documented as of this encounter Visit Diagnoses Diagnosis Vitamin D deficiency Vitamin B12 deficiency Other B-complex deficiencies documented in this encounter Administered Medications Inactive Administered Medications - up to 3 most recent administrations Medication Order MAR Action Action Date Dose Rate Site cyanocobalamin (Vitamin B-12) injection 1,000 mcg 1,000 mcg, Intramuscular, Once, On Wed12/27/24 at 1430, For 1 doseIndications:Vitamin B12 deficiency Given 12/27/2024 2:30 PM EST 1,000 mcg Left Deltoid documented in this encounter Additional Health Concerns Assessment Noted Time PHQ-9 Depression Total Score: 3 03/27/20 24 1:07 PM EDT documented as of this encounter Care Teams Event Manager Relationship Specialty Start Date End Date Lynn Colon MD [address] [place] [id number] PCP - General Internal Medicine 12/20/24 Lucie Blankenship Non Profit Job TitlesGlobal Ceo 02/02/24 documented as of this encounter
--- OUTSIDE RECORDS SUMMARY | 2025-01-03 14:35 | XMS_ITS | Encounter Summary ---
Author Organization [employer] Address [address] [facility] [address] [place] [address] Care Team Providers Care Service Car Operator Name Role Phone Lynn Colon MD Primary Care Provider [phone] Encounter Details Date Type Department Care Team (Latest Contact Info) Description 12/27/2024 Travel Social History Tobacco Use Types Packs/Day [...] Description 01/05/2025 1:00 PM EST Office Visit [facility] [address] [place] [address] Valerie Go 01/18/2025 10:15 AM EDT Office Visit [facility] [address] [place] [address] Lynn Colon MD [address] [place] [address] 01/24/2025 2:00 PM EDT Nurse Only [facility] [address] [place] [address] documented as of this encounter Visit Diagnoses Not on filedocumented in this encounter Additional Health Concerns Assessment Noted Time PHQ-9 Depression Total Score: 3 03/27/20 24 1:07 PM EDT documented as of this encounter Care Teams Service Car Operator Relationship Specialty Start Date End Date Lynn Colon MD [address] [place] [address] PCP - General Internal Medicine 12/20/24 Lucie Blankenship Ice Guard InspectorStrap Cutting Machine Operator 02/02/24 documented as of this encounter
--- OUTSIDE RECORDS SUMMARY | 2025-01-03 14:35 | XMS_ITS | Clinical Summary ---
Author Organization [employer] Address [address] [facility] 7t [place] [address] Care Team Providers Care Full Time Paramedic Name Role Phone Lynn Colon MD Primary Care Provider [phone] Allergies Active Allergy Reactions Criticality Noted Date [...] tablet by mouth at bed time. Active atorvastatin (Lipitor) 20 MG tablet TAKE 1 TABLET(20 MG) BY MOUTH IN THE MORNING 90 tablet 1 4 Active citalopram (CeleXA) 40 MG tablet Take 1 tablet by mouth Once per day. 4 Active ergocalciferol (Vitamin D2) 1.25 MG (38708 UT) capsule Take 1 capsule (1.25 mg) by mouth 1 (one) time per week. 15 capsule 5 Active folic acid (Folvite) 1 MG tablet Take 1 tablet (1 mg) by mouth Once per day. 90 tablet 3 5 12/26/19 26 Active cyanocobalamin (Vitamin B-12) 1000 MCG/ML injection Inject 1 ml IM weekly x 4 weeks then monthly 10 mL 1 5 Active Cyanocobalamin (Vitamin B-12 ER) 2000 MCG tablet controlled-rele aseIndications: Vitamin deficiency Take 1 tablet by mouth in the morning. 90 tablet 1 3 12/26/19 25 Discontinu ed(Ineffec tive) folic acid (Folvite) 1 MG tabletIndicatio ns:Vitamin deficiency Take 1 tablet (1 mg) by mouth in the morning. 90 tablet 1 3 12/26/19 25 Discontinu ed(Therapy completed) Hospital, Clinic, or Other Facility Administered Medication Ordered Dose Route Frequency Start Date End Date Status cyanocobalamin (Vitamin B-12) injection 1,000 mcgIndications:Vitamin B12 deficiency 1000 mcg IM Once 12/27/2024 12/27/2024 Ended Active Problems Problem Noted Date Diagnosed Date [...] Encounters Date Type Department Care Team Description 12/27/2024 2:00 PM EST Clinical Support [facility] [address] [place] [address] Shannan Hammer, ANDERSON Vitamin D deficiency; Vitamin B12 deficiency 12/27/2024 Travel 12/26/2024 Telephone [facility] [address] [place] [address] Lynn Colon MD 12/26/2024 Telephone [facility] [address] [place] [address] Lynn Colon MD 12/26/2024 Orders Only [facility] [address] [place] [address] Lynn Colon MD History of weight loss (Primary Dx) 12/20/2024 10:00 AM EST Office Visit [facility] [address] [place] [address] Lynn Colon MD Other fatigue (Primary Dx); History of weight loss; Vitamin D deficiency; Vitamin B12 deficiency; Mood disorder (CMS/HCC) 12/20/2024 Telephone [facility] [address] [place] [address] Lynn Colon MD Change PCP 12/20/2024 Travel 12/19/2024 Telephone [facility] [address] [place] [address] Reed Cortes MD 12/12/2024 Telephone [facility] [address] [place] [address] Reed Cortes MD Nurse Triage from Last [...] Description 01/05/2025 1:00 PM EST Office Visit [facility] [address] [place] [address] Valerie Go 01/18/2025 10:15 AM EDT Office Visit [facility] [address] [place] [address] Lynn Colon MD [address] [place] [address] 01/24/2025 2:00 PM EDT Nurse Only [facility] [address] [place] [address] Health Maintenance Due Date Last Done Comments Alcohol/Substance Use Screening 2001 Family Planning (PISQ) 2004 Hepatitis B Vaccines (1 of 3 - 19+ 3-dose series) 2008 Pneumococcal Vaccine: Pediatrics (0 to 5 Years) and At-Risk Patients (6 to 49) Years) (1 of 2 - PCV) 2008 COVID-19 Vaccine (2023- season) 2024 08/10/2023, 10/03/2022, 10/22/2021, Additional history [...] X-Ray: Full Mouth 07/01/2027 06/30/2024 Lipid Panel 12/20/2029 12/20/2024, 03/09, 08/10/2023, Additional history exists Zoster Vaccines (1 of 2) 2039 RSV Patients and Patients Aged 60 years or older (1 - 1-dose 75+ series) 2064 Hepatitis A Vaccines Completed 09/25/2019, 03/24/20 HIV Screening Completed 12/20/2024, 07/09, 10/25/2019 Hepatitis C Screening Completed 12/20/2024 , 08/10/2023, 10/25/2019 HIB Vaccines Aged Out No longer eligi [...] Routine 12/20/2024 11:04 AM EST Other fatigue LIPASE Routine 12/20/2024 11:00 AM EST History of weight loss HEPATITIS C AB W/REFL TO HCV RNA, QN, PCR Routine 12/20/2024 11:00 AM EST Other fatigue History of weight loss HIV 1/2 ANTIGEN/ANTIBODY, FOURTH GENERATION W/RFL Routine 12/20/2024 11:00 AM EST Other fatigue History of weight loss SYPHILIS SCREEN Routine 12/20/2024 11:00 AM EST [...] EST Other fatigue History of weight loss HEMOGLOBIN A1C Routine [...] EST Other fatigue History of weight loss PERIODIC ORAL EVALUATION - ESTABLISHED PATIENT Routine 07/20/2024 3:00 PM EDT PROPHYLAXIS - ADULT Routine 06/30/2024 1 :00 PM EDT INTRAORAL - COMPLETE SERIES OF RADIOGRAPHIC IMAGES Routine 06/30/2024 1:00 PM EDT from Last 3 Months or Most Recently Relevant to Health Maintenance Results * POCT Hemoglobin (12/20/2024 11:06 AM EST) [facility] Hemoglobin 14.8 13.0 - 17.0 QC Media Lot # [id number] Lot# Expiration Date 132,026 Blood 12/20/2024 11:0 6 AM EST Lynn Colon MD POINT OF CARE TEST ENTER/EDIT ORDERABLES Final Result * POCT Glucose (12/20/2024 11:04 AM EST) [facility] Glucose Blood, POC 118 60 - 200 mg/dL Comment:fasting QC Media Lot # [id number] Lot# Expiration Date 4,825 Blood Capillary blood specimen / Unknown 12/20/2024 11:04 AM EST Lynn Colon MD POINT OF CARE TEST ENTER/EDIT ORDERABLES Final Result * Syphilis Screen (12/20/2024 11:00 AM EST) [facility] Syphilis Screen Nonreactive Nonreactive [facility] Blood 12/20/2024 11:0 0 AM EST 12/21/2024 2:28 PM EST Lynn Colon MD LAB BLOOD ORDERABLES Final Re sult [facility] [address] [place] [phone] [phone] * (ABNORMAL) Basic Metabolic Panel, Fasting (12/20/2024 11:00 AM EST) [facility] Sodium 138 135 - 145 mmol/L [facility] Potassium 4.2 3.3 - 5.1 mmol/L [facility] Chloride 105 96 - 108 mmol/L [facility] Carbon Dioxide 28 22 - 29 mmol/L [facility] Anion Gap 9(L) 12 - 20 [facility] Urea Nitrogen (BUN) 8(L) 9 - 16 mg/dL [facility] Creatinine, Serum 0.86 0.5 - 1.4 mg/dL [facility] Creatinine Clr Calc Pharmacy TNP [facility] Comment:Unable to calculate eCrCL; all parameters not provided. Estimated Glomerular Filt Rate >60 [facility] Comment:Chronic Kidney Disea se: Estimated GFR < 60 mL/min/1.62f5Ykryia Kidney Disease: Estimated GFR < 15 mL/min/1.73m2 Glucose Fasting 89 60 - 99 mg/dL [facility] Calcium 9.0 8.4 - 10.2 mg/dL [facility] Blood Venous blood specimen / Unknown 12/20/2024 11:00 AM EST 12/21/2024 2:28 PM EST us Lynn Colon MD LAB BLOOD ORDERABLES Final Re sult [facility] [address] [place] [phone] * (ABNORMAL) Vitamin D, 25-Hydroxy, Total, Immunoassay (12/20/2024 11:00 AM EST) Vitamin D 25-OH Total 23.0(L) >30 ng/mL [facility] Comment:Health Based Referen ce Values*< 20 ng/mL Ycfeteqfb40-25 ng/mL Insufficient> 30 ng/mL Sufficient*Ankita JIMÉNEZ. N [...] ORDERABLES Final Re sult Performing Organization Address [facility] Co de Phone Number [facility] [address] [place] [phone] * (ABNORMAL) Vitamin B12/Folate, Serum Panel (12/20/2024 11:00 AM EST) Vitamin B12 195(L) 200 - 900 pg/mL [facility] Comment:NORMAL 200-900 PG/ML INDETERMINATE 160-199 PG/ML DEFICIENT < 160 PG/ML Folate 2.2(L) > or = 4.0 ng/mL [facility] Comment:Reference Values:> o r = 4.0 [...] ORDERABLES Final Re sult Performing Organization Address [facility] Co de Phone Number [facility] [address] [place] [phone] * TSH W/Reflex to FT4 (12/20/2024 11:00 AM EST) TSH reflex Free T4 0.67 0.32 - 4.0 uIU/mL [facility] Blood Venous blood specimen / Unknown 12/20/2024 11:00 AM EST 12/21/2024 2:28 PM EST Lynn Colon MD LAB BLOOD ORDERABLES Final Re sult [facility] [address], [place] [phone] * (ABNORMAL) CBC auto differential (12/20/2024 11:00 AM EST) White Blood Count 8.3 4.8 - 10.8 X10*3/uL [facility] Red Blood Count 4.75 4.60 - 5.80 X10*6/uL [facility] Hemoglobin 14.4 14.0 - 18.0 g/dl [facility] Hematocrit 41.8(L) 42.0 - 52.0 % [facility] Mean Corpuscular Volume 88.0 80.0 - 98.0 fL [facility] Mean Corpuscular Hemoglobin 30.3 27.0 - 33.0 pg [facility] Mean Corpuscular HGB Conc 34.4 31.0 - 36.0 g/dl [facility] Red Cell Distribution Width 14.6 11.0 - 16.0 % [facility] Platelet Count 265 160 - 400 X10*3/uL [facility] Mean Platelet Volume 10.0 9.4 - 12.4 fL [facility] Neutrophils Percent Auto 65.0 45 - 73 % [facility] Imm Gran Pct Auto 0.4 0.0 - 0.4 % [facility] Lymphocytes Percent Auto 23.8 20 - 40 % [facility] Monocytes Percent Auto 7.3 2 - 11 % [facility] Eosinophils Percent Auto 3.1 0 - 4 % [facility] Basophils Percent Auto 0.4 0 - 2 % [facility] NRBC Pct Auto 0.0 0.0 - 0.2 /100WBC [facility] Neutrophils Absolute Auto 5.4 2.0 - 8.3 x10*3/uL [facility] Imm Gran Abs Auto 0.03 0.00 - 0.03 X10*3/uL [facility] Lymphocytes Absolute Auto 2.0 1.2 - 4.9 X10*3/uL [facility] Monocytes Absolute Auto 0.6 0.1 - 1.2 X10*3/uL [facility] Eosinophils Absolute Auto 0.3 0.0 - 0.4 X10*3/uL [facility] Basophils Absolute Auto 0.0 0.0 - 0.2 X10*3/uL [facility] NRBC Abs Auto 0.000 0.0 - 0.012 X10*3/uL [facility] Blood Venous blood specimen / Unknown 12/20/2024 11:00 AM EST 12/21/2024 2:28 PM EST Lynn Colon MD LAB BLOOD ORDERABLES Final Re sult Performing Organization Address [facility] Co de Phone Number [facility] [address] [place] [phone] * Hepatitis C Antibody with Reflex to HCV, RNA, Quantitative, Real-Time PCR (12/20/2024 11:00 AM EST) Pathologist [facility] Hepatitis C Antibody Nonreactive Nonreactive [facility] Comment:Antibodies to HCV no t detected; does not exclude early acuteHCV infection. Blood Venous blood specimen / Unknown 12/20/2024 11:00 AM EST 12/21/2024 2:28 PM EST Lynn Colon MD LAB BLOOD ORDERABLES Final Re sult Performing Organization Address [facility] Co de Phone Number [facility] [address] [place] [phone] * HIV-1/2 Antigen and Antibodies, Fourth Generation, with Reflexes (12/20/2024 11:00 AM EST) HIV AB/AG Nonreactive Nonreactive [facility] Comment:HIV-1 p24 Ag and/or HIV-1/HIV-2 Ab not detected.A test result that is nonreactive does not exclude thepossibility of exposure to or infection with HIV-1 and/orHIV-2. Nonreactive results in this assay for individualswith prior exposure to HIV-1 and/or HIV-2 may be due toantigen and antibody levels that are below the limit ofdetection of this assay.The [employer] HIV Ag/Ab Combo assay result andsupplemental assay results should be interpreted inconjunction with the patient's clinical presentation,history and other laboratory results. If the results areinconsistent with clinical evidence, additional testing issuggested to confirm the result. Blood Venous blood specimen / Unknown 12/20/2024 11:00 AM EST 12/21/2024 2:28 PM EST us Lynn Colon MD LAB BLOOD ORDERABLES Final Re sult [facility] [address] [place] [phone] * BROOKE Screen,IFA, with Reflex to Titer and Pattern (12/20/2024 11:00 AM EST) Anti Nuclear Antibody Screen NEGATIVE NEGATIVE [facility] Comment:BROOKE IFA is a first l [...] clinicallysuspected inflammatory myopathies.AC-0: NegativeInternational Consensus on BROOKE Patterns(https://doi.org/10.1515/klom-4948-4419)For additional information, please refer tohttp://education.[employer].inthinc/faq/MHO977(This link is being provided for informational/educational purposes only.)THIS TEST WAS PERFORMED AT:[facility] [place] [phone] ONTIVEROS MD BROOKE Titer [facility] BROOKE Pattern [facility] BROOKE TITER 2 (REF LAB) [facility] BROOKE Pattern 2 [facility] BROOKE TITER 3 [facility] BROOKE PATTERN 3 [facility] Blood Venous blood specimen / Unknown 12/20/2024 11:00 AM EST 12/21/2024 2:28 PM EST Lynn Colon MD LAB BLOOD ORDERABLES Final Re sult Performing Organization Address City/[facility]/ZIP Co de Phone Number [facility] [address] [place] [phone] * Lipase (12/20/2024 11:00 AM EST) Lipase 25 8 - 78 U/L [facility] Blood Venous blood specimen / Unknown 12/20/2024 11:00 AM EST 12/21/2024 2:28 PM EST Lynn Colon MD LAB BLOOD ORDERABLES Final Re sult Performing Organization Address City/[facility]/ZIP Co de Phone Number [facility] [address] [place] [phone] * Hemoglobin A1c (12/20/2024 11:00 AM EST) Hemoglobin A1c 5.2 <6.0 % [facility] Comment:Hemoglobin A1C Refer ence Range Adults: 4.8 - 6.0 % Non diabetic: < 6.0 % Goal: < 7.0 %Additional Action Suggested: > 8.0 %Note: Hemoglobin A1c results are invalid for patients with abnormal amounts of HbF. Blood transfusions may impact the HbA1c concentration in the patient sample. Estimated Average Glucose 103 mg/dL [facility] Comment:eAG = Estimated ave rage glucose which is %A1C expressed asaverage glucose, using the formula of the K8A-UnttnjfMbslsxa Glucose study (ADAG), Diabetes Care, Vol.31,#8,Jun. 2007 Blood Venous blood specimen / Unknown 12/20/2024 11:00 AM EST 12/21/2024 2:28 PM EST us Lynn Colon MD LAB BLOOD ORDERABLES Final Re sult Performing Organization Address City/[facility]/ZIP Co de Phone Number [facility] [address] [place] [phone] * Hepatic Function Panel (12/20/2024 11:00 AM EST) Bilirubin, Total 0.2 0.0 - 1.0 mg/dL [facility] Bilirubin, Direct <0.2 0.0 - 0.5 mg/dL [facility] Aspartate Amino Transferase 24 5 - 37 U/L [facility] Alanine Aminotransferase 24 0 - 40 U/L [facility] Total Protein 7.2 6.5 - 8.0 g/dL [facility] Albumin Level 4.3 3.5 - 5.0 g/dL [facility] Alkaline Phosphatase 91 39 - 117 U/L [facility] Blood Venous blood specimen / Unknown 12/20/2024 11:00 AM EST 12/21/2024 2:28 PM EST us Lynn Colon MD LAB BLOOD ORDERABLES Final Re sult Performing Organization Address [facility] Co de Phone Number [facility] [address] [place] [phone] * (ABNORMAL) Lipid Panel, Standard (12/20/2024 11:00 AM EST) Triglycerides 213(H) <150 mg/dL [facility] Comment:Slight Lipemia.Milo able Triglyceride: less than 150 mg/dLBorderline High Triglyceride 150-199 mg/dLHigh Triglyceride: 200-499 mg/dLVery High Triglyceride: greater than or equal to 5OO mg/dL Cholesterol 167 <200 mg/dL [facility] Comment:Desirable Cholestero l: less than 200 mg/dLBorderline High Cholesterol: 200-239 mg/dLHigh Cholesterol: greater than 239 mg/dL LDL Cholesterol Calculated 86 <100 mg/dL [facility] Comment:Desirable LDL: less than 100 mg/dLNear Optimal/Above Optimal LDL: 110- 129 mg/dLBorderline High LDL: 130-159 mg/dLHigh LDL: 160-189 mg/dLVery High LDL: greater than or equal to 190 mg/dL HDL Cholesterol 39(L) >40 mg/dL [facility] Comment:Desirable HDL: great er than 40 mg/dL Note: This HDL assay may give artificially low results in patients with liver disease. Blood Venous blood specimen / Unknown 12/20/2024 11:00 AM EST 12/21/2024 2:28 PM EST us Lynn Colon MD LAB BLOOD ORDERABLES Final Re sult [facility] [address] [place] [phone] from Last 3 Months Insurance [facility] C3 DENTAL-[facility] MEDICAID STAND ADULT Care Teams Full Time Paramedic Relationship Specialty Start Date End Date Lynn Colon MD [address] [place] [phone] PCP - General Internal Medicine 12/20/24 Lucie Blankenship Produce ShipperApns 02/02/24
--- OUTSIDE RECORDS SUMMARY | 2025-01-03 14:36 | XMS_ITS | Encounter Summary ---
Author Organization [employer] Address [address] [facility] 7t [place] [address] Care Team Providers Care Interlocker Name Role Phone Lynn Colon MD Primary Care Provider [phone] Encounter Details Date Type Department Care Team ([facility] st Contact Info) Description 12/26/2024 Orders Only [facility]EDS [address] [place], [place] [phone] Lynn Colon MD [address] [place], [place] [phone] History of weight loss (Primary Dx) Social History Tobacco Use Types Packs/Day Years [...] [facility] [address] [place] [address] Valerie Go 01/18/2025 10:15 AM EDT Office Visit [facility] [address] [place] [address] Lynn Colon MD [address] [place] [address] 01/24/2025 2:00 PM EDT Nurse Only [facility] [address] [place] [address] Scheduled Orders Name Type Priority Associated Diagnoses Orde r Schedule C-reactive Protein Lab Routine History of weight loss Expected: 12/26/2024 (Approximate), Expires: 12/26/2025 Sed Rate by Modified [place] Lab Routine History of weight loss Expected: 12/26/2024, Expires: 12/26/2025 Phosphate (As Phosphorus) Lab Routine History of weight loss Expected: 12/26/2024, Expires: 12/26/2025 Albumin Lab Routine History of weight loss Expected: 12/26/2024 (Approximate), Expires: 12/26/2025 documented as of this encounter Visit Diagnoses Diagnosis History of weight loss- Primary documented in this encounter Additional Health Concerns Assessment Noted Time PHQ-9 Depression Total Score: 3 03/27/20 24 1:07 PM EDT documented as of this encounter Care Teams Interlocker Relationship Specialty Start Date End Date Lynn Colon MD [address] [place] [address] PCP - General Internal Medicine 12/20/24 Lucie Blankenship Jacquard Loom Card ChangerRail Car Maintenance Mechanic 02/02/24 documented as of this encounter
--- OUTSIDE RECORDS SUMMARY | 2025-01-03 14:36 | XMS_ITS | Encounter Summary ---
Author Organization [employer] Address [address] [facility] 7 [place] [address] Care Team Providers Care Script Developer Name Role Phone Reed Cortes MD Primary Care Prov ider Reason for Visit * Reason Onset Date Comments Nurse Triage 12/12/2024 Encounter Details Date Type Department Care Team ([facility] st Contact Info) Description 12/12/2024 Telephone [facility] CHC MED & PEDS [address] [place] [address] Reed Cortes MD [address] [place] [address] Nurse Triage Social History Tobacco Use Types [...] on pt. Voicemail to please call back [facility] nurses at [phone] and if this is an emergency to please go to ED. Called pt. Back x2. No answer. Mother had called and states chest pain is same as 08/29/24 [facility] ED - Costochondritis on right side [...] [facility] [address] [place] [address] Valerie Go 01/18/2025 10:15 AM EDT Office Visit [facility] [address] [place] [address] Lynn Colon MD [address] [place] [address] 01/24/2025 2:00 PM EDT Nurse Only [facility] [address] [place] [address] documented as of this encounter Visit Diagnoses Not on filedocumented in this encounter Additional Health Concerns Assessment Noted Time PHQ-9 Depression Total Score: 3 03/27/20 24 1:07 PM EDT documented as of this encounter Care Teams Script Developer Relationship Specialty Start Date End Date Reed Cortes MD [address] [place] [address] PCP - General Internal Medicine 03/12/20 12/19/24 Lucie Blankenship Care Management CoordinatorLeasing Associate 02/02/24 documented as of this encounter
--- OUTSIDE RECORDS SUMMARY | 2025-01-03 14:36 | XMS_ITS | Encounter Summary ---
Author Organization [employer] Address [address] [facility] 7 [place] [address] Care Team Providers Care Cook Dessert Name Role Phone Lynn Colon MD Primary Care Provider [phone] Reason for Visit * Reason Onset Date Comments Change PCP 12/20/2024 Encounter Details Date Type Department Care Team ([facility] Contact Info) Description 12/20/2024 Telephone [facility] MED & PEDS [address] [place] [address] Lynn Colon MD [address] [place] [address] Change PCP Social History Tobacco Use Types [...] Description 01/05/2025 1:00 PM EST Office Visit [facility] ADULT D[facility]AL [address] [place] [address] Valerie Go 01/18/2025 10:15 AM EDT Office Visit [facility] & PEDS [address] [place] [address] Lynn Colon MD [address] [place] [address] 01/24/2025 2:00 PM EDT Nurse Only [facility] [address] [place] [address] documented as of this encounter Visit Diagnoses Not on filedocumented in this encounter Additional Health Concerns Assessment Noted Time PHQ-9 Depression Total Score: 3 03/27/20 24 1:07 PM EDT documented as of this encounter Care Teams Cook Dessert Relationship Specialty Start Date End Date Lynn Colon MD [address] [place] [phone] PCP - General Internal Medicine 12/20/24 Lucie Blankenship Ore WasherSenior Marketing Coordinator 02/02/24 documented as of this encounter
--- OUTSIDE RECORDS SUMMARY | 2025-01-03 14:36 | XMS_ITS | Encounter Summary ---
Author Organization [employer] Address [address] [place] [address] Care Team Providers Care Web Machine Tender Name Role Phone Lynn Colon MD Primary Care Provider [phone] Encounter Details Date Type Department Care Team [...] Visit [facility] ADULT DENTAL [address] [place] [address] Valerie Go 01/18/2025 10:15 AM EDT Office Visit [facility] MED [facility] PED[facility] [address] [place] [address] Lynn Colon MD [address] [place] [address] 01/24/2025 2:00 PM EDT Nurse Only [facility] [address] [place] [address] documented as of this encounter Visit Diagnoses Not on filedocumented in this encounter Additional Health Concerns Assessment Noted Time PHQ-9 Depression Total Score: 3 03/27/20 24 1:07 PM EDT documented as of this encounter Care Teams Web Machine Tender Relationship Specialty Start Date End Date Lynn Colon MD [address] [place] [address] PCP - General Internal Medicine 12/20/24 Lucie Blankenship Recreation AssistantCredit Review Officer 02/02/24 documented as of this encounter
--- OUTSIDE RECORDS SUMMARY | 2025-01-03 14:36 | XMS_ITS | Clinical Summary ---
Author Organization [facility] Address [address] [place] [address] Care Team Providers Care Assistant Associate Full Professor Name Role Phone Unavailable Primary Care Provider [...] 3 - 19 + 3-dose series) 2008 [id number] ( season) 2024 10/22/2021, 03/17/2021, 02/12/2021 Imm-Influenza (#1) 2024 09/02/2020, 1 2018, 09/06/2018, Additional history exists Alcohol and Drug Screen 11/08/2024 Depression Annual Screen 11/08/2024 Imm-DTaP/Tdap/Td (2 - Td or Tdap) 01/16/2026 016 Insurance [facility] D[facility] D[facility] [address] [employer]
--- OUTSIDE RECORDS SUMMARY | 2025-01-03 14:36 | XMS_ITS | Encounter Summary ---
Author Organization [employer] Address [address] [facility] 7t [place] [address] Care Team Providers Care Systems Integration Manager Name Role Phone Lynn Colon MD Primary Care Provider [phone] Encounter Details Date Type Department Care Team ([facility] Contact Info) Description 12/26/2024 Telephone [facility] MED & PEDS [address] [place], [place] [phone] Lynn Colon MD [address] [place] [address] Social History Tobacco Use Types Packs/Day Years [...] encounter Miscellaneous Notes * Telephone Encounter - Ericka Torres RN - 12/26/2024 1:47 PM EST Call placed to patient to schedule nurse visit for vitamin B-12 injection. Appt scheduled with Kaitlin nurses tomorrow at 2 PM. Patient verbalizes understanding and agreement with plan of care at this time. documented in this encounter Plan of Treatment Upcoming Encounters Date Type Department Care Team (Late st Contact Info) Description 01/05/2025 1:00 PM EST Office Visit [facility] ADULT DENTAL [address] [place] [address] Valerie Go 01/18/2025 10:15 AM EDT Office Visit [facility]ED[facility] [address] [place] [address] Lynn Colon MD [address] [place] [address] 01/24/2025 2:00 PM EDT Nurse Only [facility] [address] [place] [address] documented as of this encounter Visit Diagnoses Not on filedocumented in this encounter Additional Health Concerns Assessment Noted Time PHQ-9 Depression Total Score: 3 03/27/20 24 1:07 PM EDT documented as of this encounter Care Teams Systems Integration Manager Relationship Specialty Start Date End Date Lynn Colon MD [address] [place] [id number] PCP - General Internal Medicine 12/20/24 Lucie Blankenship Management RecruiterFresh Meat Grader 02/02/24 documented as of this encounter
--- OUTSIDE RECORDS SUMMARY | 2025-01-03 14:36 | XMS_ITS | Encounter Summary ---
Author Organization [employer] Address [address] [facility] [place] [address] Care Team Providers Care Correctional Program Officer Name Role Phone Reed Cortes MD Primary Care Prov ider Lynn Colon MD Primary Care Provider [phone] Encounter Details Date Type Department Care Team (Late st Contact Info) Description 11/02/2023 Abstract [facility] ADULT DENTAL [address] [place] [address] Sahil Conrad, DDS [address] [place] [address] Social History Tobacco Use Types Packs/Day Years [...] 1:00 PM EST Office Visit [facility] ADULT DENTAL [address] [place] [address] Valerie Go 01/18/2025 10:15 AM EDT Office Visit [facility] MED & PEDS [address] [place] [address] Lynn Colon MD [address] [place] [address] 01/24/2025 2:00 PM EDT Nurse Only [facility] MED & PED[facility] [address] [place] [address] documented as of this encounter Visit Diagnoses Not on filedocumented in this encounter Additional Health Concerns Assessment Noted Time PHQ-9 Depression Total Score: 9 01/28/20 23 11:27 AM EDT documented as of this encounter Care Teams Correctional Program Officer Relationship Specialty Start Date End Date Reed Cortes MD [address] [place] [address] PCP - General Internal Medicine 03/12/20 12/19/24 Lynn Colon MD [address] [place] [address] PCP - General Internal Medicine 12/20/24 Lucie Blankenship Regional Facilities ManagerChild Study Team Director 3/27/24 documented as of this encounter
--- OUTSIDE RECORDS SUMMARY | 2025-01-03 14:36 | XMS_ITS | Encounter Summary ---
Author Organization [employer] Address [address] [facility] 7[address] [place] [address] Care Team Providers Care Supervisor Litharge Name Role Phone Reed Cortes MD Primary Care Prov ider Lynn Colon MD Primary Care Provider [phone] Reason for Visit * Reason Comments Med Refill Encounter Details Date Type Department Care Team ([facility] st Contact Info) Description 03/29/2023 Refill [facility] MED & PEDS [address] [place], [place] [phone] Tosin Jack MD [address] [place] [address] Vitamin deficiency Social History Tobacco Use Types [...] AM EDT This is a not a press tender long goods medication this is for short term, at this moment will refused this request documented in this encounter Plan of Treatment Upcoming Encounters Date Type Department Care Team (Late st Contact Info) Description 01/05/2025 1:00 PM EST Office Visit [facility] ADULT DENTAL [address] [place] [address] Valerie Go 01/18/2025 10:15 AM EDT Office Visit [facility] MED & PEDS [address] [place] [address] Lynn Colon MD [address] [place] [address] 01/24/2025 2:00 PM EDT Nurse Only [facility] MED [facility] PED[facility] [address] [place] [address] documented as of this encounter Visit Diagnoses Diagnosis Vitamin deficiency Unspecified vitamin deficiency documented in this encounter Additional Health Concerns Assessment Noted Time PHQ-9 Depression Total Score: 9 01/28/20 23 11:27 AM EDT documented as of this encounter Care Teams Supervisor Litharge Relationship Specialty Start Date End Date Reed Cortes MD [address] [place] [address] PCP - General Internal Medicine 03/12/20 12/19/24 Lynn Colon MD [address] [place] [id number] PCP - General Internal Medicine 12/20/24 Lucie Blankenship Director AcutePotato Chip Maker 02/02/24 documented as of this encounter
[2025-01-03 14:38] LABS: Albumin Level 4.4 g/dL (3.5-5.0); C Reactive Protein 0.22 mg/dL (< or = 0.50); Phosphorus 2.3 mg/dL (2.7-4.5)
[2025-01-03 15:08] LABS: Erythrocyte Sedimentation Rate 6 MM/HR (0-15)
== END 2025-01-03 11:38 | disposition home or self-care (01) ==
LOC: HO.CHCLDS 11:37
PROVIDERS: Visit Provider Pediatrics
DX: Z87.898 Personal history of other specified conditions (principal)
CPT/HCPCS: 36415; 82040; 84100; 85652; 86140

== ENCOUNTER 2025-04-09 11:52 | Outpatient (REF) | payer MEDICAID, SELFPAY ==
--- OUTSIDE RECORDS SUMMARY | 2025-04-09 13:05 | XMS_ITS | Encounter Summary ---
Author Organization [employer] Address [address] [facility] [address] [place] [address] Care Team Providers Care Skid Wrapper Name Role Phone Reed Cortes MD Primary Care Prov ider Lynn Colon MD Primary Care Provider [phone] Reason for Visit * Reason Onset Date Comments call back 12/30/2022 Encounter Details Date Type Department Care Team ([facility] st Contact Info) Description 12/30/2022 Telephone [facility] MED[facility] [address] [place] [address] Reed Cortes MD [address] [place] [address] call back Social History Tobacco Use Types [...] Care Team (Late st Contact Info) Description 04/19/2025 10:00 AM EDT Office Visit [facility] ADULT D[facility] [address] [place] [address] Valerie Go 05/07/2025 10:30 AM EDT Clinical Support [facility] MED [facility]ED[facility] [address] [place] [address] documented as of this encounter Visit Diagnoses Not on filedocumented in this encounter Care Teams Skid Wrapper Relationship Specialty Start Date End Date Reed Cortes MD [address] [place] [address] PCP - General Internal Medicine 03/12/20 12/19/24 Lynn Colon MD [address] [place] [address] PCP - General Internal Medicine 12/20/24 Lucie Blankenship Spin Table OperatorFunding Coordinator 02/02/24 documented as of this encounter
[2025-04-09 15:01] LABS: Vitamin D 25-OH Total 80.2 ng/mL (>30)
== END 2025-04-09 11:53 | disposition home or self-care (01) ==
LOC: HO.CHCLDS 11:52
PROVIDERS: Visit Provider Pediatrics
DX: E55.9 Vitamin D deficiency, unspecified (principal)
CPT/HCPCS: 36415; 82306